=== PATIENT | female | born 1985 | race Caucasian/White ===

== ENCOUNTER 2019-10-11 17:02 | Emergency (ER) | payer OTHER, SELFPAY ==
[2019-10-11 17:18] VITALS: BP 146/71; PULSE 84; RESP 18; TEMP 36.7; O2SAT 96
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
[2019-10-11] MEDS: IBUPROFEN 400 MG TABLET PO (18:38)
[2019-10-11] MEDS: ACETAMINOPHEN 325 MG TABLET 975 MG PO (18:38)
[2019-10-11 19:45] VITALS: BP 106/59; PULSE 80; RESP 14; O2SAT 95
== END 2019-10-11 19:46 | disposition home or self-care (01) ==
PROVIDERS: Emergency Provider Nurse Practitioner Family
DX: S40.022A Contusion of left upper arm, initial encounter (principal); M79.632 Pain in left forearm; S29.9XXA Unspecified injury of thorax, initial encounter; V89.2XXA Person injured in unspecified motor-vehicle accident, traffic, initial encounter
CPT/HCPCS: 71046; 73090; 99283; 99284

== ENCOUNTER 2019-12-12 07:34 | Emergency (ER) | payer OTHER, MEDICAID, SELFPAY ==
[2019-12-12 07:35] VITALS: BP 122/81; PULSE 83; RESP 12; TEMP 36.6; O2SAT 99
--- NOTE | 2019-12-12 07:45 | ED_ITS ---
HPI - Headache General Chief Complaint: Headache Stated Complaint: Migraine x5 days Time Seen by Provider: 12/12/19 07:45 History of Present Illness HPI Narrative: 34-year-old woman with a history of migraines and polysubstance abuse(methamphetamine heroin IV drugs) in recovery now for over a year presents with headache that is been present for over a week. Associated with photophobia and hyperosmia, she describes it is a classic migraine type headache. Further questioning she notes that she has regular headaches more than 15 per month. She has had success with sumatriptan but recognizes that she is probably taking it more than is advised due to the frequency of headaches. She is interested in being on a prophylactic medication and will be establishing care with Dr. Bangura in the next month. Related Data Previous Rx's Medication Instructions Recorded naproxen 500 mg tablet 500 mg PO BID #60 tab 10/20/19 orphenadrine citrate 100 mg 100 mg PO BID PRN #30 tab 10/20/19 tablet,extended release Allergies Allergy/AdvReac Type Severity Reaction Status Date / Time Benzodiazepines AdvReac Severe History of Verified 10/20/19 15:09 addiction hydrocodone AdvReac Severe History of Verified 10/20/19 15:09 addiction; itching Review of Systems Review of Systems Narrative: Nine months with Mirena IUD placed at 3 months and continued spotting for the last number of months Pertinent positive and negative findings as per HPI Remainder of review of systems is otherwise unremarkable for Constitutional: Fevers, chills, weakness ENT: No sore throat, neck pain, ear pain CV: Chest pain, palpitations, dyspnea on exertion Respiratory: Cough, wheeze, dyspnea GI: diarrhea, change in bowel habits, black or bloody stools : Dysuria, hematuria, flank pain MS: Muscle weakness, numbness, joint swelling or warmth Skin: Rashes, nonhealing lesions Neuro: Syncope, dizziness, tingling Endocrine: Fatigue, heat or cold intolerance, very dry skin Heme: Easy bruising or bleeding Allergy: Seasonal rhinorrhea, itchy eyes Patient History Medical History Anxiety (Acute) Depression (Acute) Drug abuse and dependence (Acute) Migraine headache (Acute) Social History Smoking Status: Never smoker Smoking Status: Never smoker Substance Use Type: does not use Exam Narrative Exam Narrative: General: Mild distress with photophobia Able to give a complete and coherent history. Well-nourished well-developed HEENT: Moist mucous membranes, normal sclera with reactive pupils, Neck: supple Respiratory: Lungs are clear to auscultation, no wheezing no rales no rhonchi. Full and symmetrical air movement Cardiac: Regular rate and rhythm no murmurs no bruits Abdomen: Soft nontender good bowel tones, no flank pain Skin: Warm and dry, no rashes Neurologic: Grossly neurologically intact with no obvious asymmetries or abnormalities Extremities: No trauma, well perfused Psych: Cooperative, appropriate insight and affect Initial Vital Signs Initial Vital Signs: Vital Signs Temperature 97.9 F 12/12/19 07:35 Pulse Rate 83 12/12/19 07:35 Respiratory Rate 12 12/12/19 07:35 Blood Pressure 122/81 12/12/19 07:35 Pulse Oximetry 99 12/12/19 07:35 Course Orders Ordered: ED Orders 12/12/19 08:00 Complete Blood Count AUTO DIFF Stat Comprehensive Metabolic Panel Stat 12/12/19 08:12 Urinalysis and Microscopic Stat Discontinued Medications Dexamethasone (Decadron) 10 mg IV NOW ONE Stop: 12/12/19 08:03 Last Admin: 12/12/19 08:11 Dose: 10 mg Documented by: MAXIM Diphenhydramine HCl (Benadryl) 25 mg IV NOW ONE Stop: 12/12/19 08:03 Last Admin: 12/12/19 08:11 Dose: 25 mg Documented by: MAXIM Sodium Chloride (Normal Saline 0.9%) 1,000 mls @ 1,000 mls/hr IV BOLUS ONE Stop: 12/12/19 09:01 Last Infusion: 12/12/19 09:38 Dose: 0 mls/hr Documented by: Admin: 12/12/19 08:13 Dose: 1,000 mls/hr Documented by: MAXIM Ketorolac Tromethamine (Toradol) 15 mg IV NOW ONE Stop: 12/12/19 08:03 Last Admin: 12/12/19 08:12 Dose: 15 mg Documented by: MAXIM Metoclopramide HCl (Reglan) 10 mg IV NOW ONE Stop: 12/12/19 08:03 Last Admin: 12/12/19 08:12 Dose: 10 mg Documented by: MAXIM Vital Signs Vital signs: Vital Signs - 8 hr 12/12/19 07:35 12/12/19 09:26 Temperature 97.9 F Pulse Rate 83 73 Respiratory Rate 12 18 Blood Pressure 122/81 Blood Pressure [Right Arm] 103/64 Pulse Oximetry 99 98 MDM - Headache Medical Records Attestation: I reviewed the patient's medical records. Lab Data Attestation: I reviewed the patient's lab results. Result diagrams: 12/12/19 08:00 12/12/19 08:00 Labs: Lab Results 12/12/19 12/12/19 Range/Units 08:00 08:00 WBC 5.9 (4.5-11.0) X10^3/uL RBC 4.34 (4.0-5.2) X10^6/uL Hgb 14.4 (12.0-16.0) g/dL Hct 41.1 (36-46) % MCV 94.6 (80-100) fL MCH 33.2 (26-34) PG MCHC 35.1 (30-36) % RDW 13.0 (11.6-14.8) % Plt Count 218 (150-400) X10^3/uL Neut % (Auto) 62.9 (50-75) % Lymph % (Auto) 29.9 (25-40) % Prentiss % (Auto) 5.5 (3-14) % Eos % (Auto) 1.1 L (2-4) % Baso % (Auto) 0.6 (0-2) % Neut # (Auto) 3700 (5743-0586) /uL Lymph # (Auto) 1800 (3060-9674) /uL Prentiss # (Auto) 300 (0-900) /uL Eos # (Auto) 100 (0-450) /uL Baso # (Auto) 0 (0-100) /uL Sodium 138 (137-145) mmol/L Potassium 4.1 (3.4-5.1) mmol/L Chloride 107 (98-107) mmol/L Carbon Dioxide 23 (22-32) mmol/L BUN 20 H (7-17) mg/dL Creatinine 0.79 (0.52-1.04) mg/dL Estimated GFR > 60.0 (>60) mL/min BUN/Creatinine Ratio 25.3 H (6-22) Glucose 126 H (70-100) mg/dL Calcium 9.5 (8.4-10.2) mg/dL Total Bilirubin 0.6 (0.2-1.3) mg/dL AST 23 (14-36) IU/L ALT 19 (<35) IU/L Alkaline Phosphatase 56 (38-126) U/L Total Protein 7.8 (6.3-8.2) g/dL Albumin 4.5 (3.5-5.0) g/dL Globulin 3.3 (1.7-4.1) g/dL Albumin/Globulin Ratio 1.4 (1.0-2.8) Point of Care Testing Test Results Negative Urine Dip Bedside Urine Glucose Negative Bedside Urine Bilirubin - Negative Bedside Urine Ketone - Negative Urine Specific [place] 1.010 Bedside Urine Occult Blood - Negative Bedside Urine pH 6.5 Bedside Urine Protein - Negative Bedside Urine Urobilinogen - Negative Bedside Urine Nitrite - Negative Bedside Urine Leukocytes - Negative Esterase MDM Narrative Medical decision making narrative: Headache is entirely resolved and patient is ready for home discharge. Discharge Plan Departure Patient Disposition: Home Clinical Impression: Vaginal spotting Migraine Qualifiers: Migraine type: unspecified Status migrainosus presence: without status migrainosus Intractability: not intractable Qualified Code(s): G43.909 - Migraine, unspecified, not intractable, without status migrainosus Instructions: DI for Migraine Activity Restrictions/Additional Instructions: Thank you for coming in today I am glad that your headache is a bit better. When you have your establish care appointment with Dr. Bangura next month please discuss your chronic migraines and see if he has suggestions on a daily prophylactic type medications, there are number that can be helpful. Please try to minimize [id number] medications to treat her headaches as this can cause rebound headaches. I would also encourage you to be very aware of activities, sleep patterns as well as diet changes that may be triggering your headaches. Some of the classic so our sleep changes, sugar, and caffeine. Regarding vaginal spotting your having, this can be common with a Mirena IUD in place. There are some simple hormonal supplements that may be useful. Again, please discuss this with Dr. Bangura. I wish you the best Medicines that you got in the emergency room today include saline, Toradol, Decadron, Benadryl, and Reglan. None of these are narcotic, benzodiazepines or stimulants. None should show up on your drug testing. Please make sure you do include all of these medications when you let them know what medication you have had. Prescriptions: No Action naproxen 500 mg tablet 500 mg PO BID Qty: 60 RF: 1 orphenadrine citrate 100 mg tablet extended release 100 mg PO BID PRN (Reason: muscle spasm) Qty: 30 RF: 0
[2019-12-12] MEDS: diphenhydrAMINE 50 MG/ML VIAL 25 MG IV (08:11)
[2019-12-12] MEDS: DEXAMETHASONE 10 MG/ML VIAL IV (08:11)
[2019-12-12] MEDS: METOCLOPRAMIDE 10 MG/2 ML INJ IV (08:12)
[2019-12-12] MEDS: KETOROLAC 60 MG/2 ML VIAL 15 MG IV (08:12)
[2019-12-12 08:13] LABS: Add Manual Diff / Slide Review NO; Basophils Absolute Auto 0 /uL (0-100); Basophils Percent Auto 0.6 % (0-2); Eosinophils Absolute Auto 100 /uL (0-450); Eosinophils Percent Auto 1.1 % (2-4); Hematocrit 41.1 % (36-46); Hemoglobin 14.4 g/dL (12.0-16.0); Lymphocytes Absolute Auto 1800 /uL (1100-4500); Lymphocytes Percent Auto 29.9 % (25-40); Mean Corpuscular HGB Conc 35.1 % (30-36); Mean Corpuscular Hemoglobin 33.2 PG (26-34); Mean Corpuscular Volume 94.6 fL (80-100); Monocytes Absolute Auto 300 /uL (0-900); Monocytes Percent Auto 5.5 % (3-14); Neutrophils Absolute Auto 3700 /uL (1500-7000); Neutrophils Percent Auto 62.9 % (50-75); Platelet Count 218 X10^3/uL (150-400); Red Blood Cell Count 4.34 X10^6/uL (4.0-5.2); White Blood Cell Count 5.9 X10^3/uL (4.5-11.0)
[2019-12-12] MEDS: SODIUM CHLORIDE 0.9% 1,000 ML 1000 ML IV (08:13)
[2019-12-12 08:25] LABS: Alanine Aminotransferase 19 IU/L (<35); Albumin 4.5 g/dL (3.5-5.0); Albumin Globulin Ratio 1.4 (1.0-2.8); Alkaline Phosphatase 56 U/L (38-126); Aspartate Aminotransferase 23 IU/L (14-36); BUN Creatinine Ratio 25.3 (6-22); Bilirubin Total 0.6 mg/dL (0.2-1.3); Blood Urea Nitrogen 20 mg/dL (7-17); Calcium 9.5 mg/dL (8.4-10.2); Carbon Dioxide 23 mmol/L (22-32); Chloride 107 mmol/L (98-107); Estimated Glomerular Filt Rate > 60.0 mL/min (>60); Globulin 3.3 g/dL (1.7-4.1); Glucose 126 mg/dL (70-100); HEMOLYSIS 18 (0-50); Potassium 4.1 mmol/L (3.4-5.1); Sodium 138 mmol/L (137-145); Total Protein 7.8 g/dL (6.3-8.2)
[2019-12-12 09:26] VITALS: BP 103/64; PULSE 73; RESP 18; O2SAT 98
[2019-12-12 10:57] LABS: Bacteria Urine None Seen; RBC Urine None Seen (0-5/HPF); WBC Urine None Seen (0-5/HPF)
[2019-12-12 10:58] LABS: Appearance Urine UA CLEAR; Bilirubin Urine UA NEGATIVE (NEGATIVE); Color Urine UA YELLOW; Glucose Urine UA NEGATIVE (Negative); Ketones Urine UA NEGATIVE (NEGATIVE); Leukocyte Esterase Urine UA NEGATIVE (NEGATIVE); Nitrite Urine UA NEGATIVE (Negative); Occult Blood Urine UA NEGATIVE (Negative); Protein Urine UA NEGATIVE (Negative); Specific Gravity Urine UA <=1.005 (1.000-1.035); Urobilinogen Urine UA 0.2 E.U./dL (0.2)
[2019-12-12 11:02] LABS: pH Urine UA 6.5 (4.5-8.0)
[2019-12-12 11:04] LABS: Culture Indicated Urine Cult Not Indicated; Urine Comments Microscopic Normal
== END 2019-12-12 09:54 | disposition home or self-care (01) ==
PROVIDERS: Emergency Provider Emergency Medicine
DX: G43.909 Migraine, unspecified, not intractable, without status migrainosus (principal); N93.9 Abnormal uterine and vaginal bleeding, unspecified
CPT/HCPCS: 36415; 80053; 81001; 81003; 81025; 85025; 96361; 96374; 96375; 99284; J1100; J1200; J1885; J2765

== ENCOUNTER 2019-12-15 18:02 | Emergency (ER) | payer OTHER, MEDICAID, SELFPAY ==
[2019-12-15 18:22] VITALS: BP 130/70; PULSE 72; RESP 18; TEMP 36.8; O2SAT 100; BMI 34.7
--- NOTE | 2019-12-15 19:16 | ED.EAR ---
HPI - Ear Problem <JOSE Washington- - Last Filed: 12/15/19 19:23> General Chief complaint: Ear Stated complaint: LEFT EAR NUMBNESS DISCHARGED Time Seen by Provider: 12/15/19 18:50 Source: patient Mode of arrival: Ambulatory Limitations: no limitations History of Present Illness HPI Narrative: The patient is a 34-year-old female current smoker with history of migraines who presents for chief complaint of purulence drainage from her left ear. She states this started yesterday. She denies any fevers or congestion. She states it started after she was scratching the inside of right ear while picking up rocks and dirt. She is concerned that she might have introduced some infection into her ear that way. She denies any cough or shortness of breath. She states that she only has purulence drainage from her left ear. She states her hearing is normal for her. Related Data Previous Rx's Medication Instructions Recorded naproxen 500 mg tablet 500 mg PO BID #60 tab 10/20/19 orphenadrine citrate 100 mg 100 mg PO BID PRN #30 tab 10/20/19 tablet,extended release ofloxacin 10 drop EAR-LEFT DAILY 7 Days #10 12/15/19 ml Allergies Allergy/AdvReac Type Severity Reaction Status Date / Time Benzodiazepines AdvReac Severe History of Verified 12/15/19 18:22 addiction hydrocodone AdvReac Severe History of Verified 12/15/19 18:22 addiction; itching Review of Systems <JOSE Washington- - Last Filed: 12/15/19 19:23> Review of Systems Narrative: GENERAL: Denies chills, fatigue, malaise, fever, sweats. HEENT: See HPI RESPIRATORY: Denies dyspnea, cough, wheezing, hemoptysis, sputum. CARDIOVASCULAR: Denies chest pain, palpitations, orthopnea, edema, GASTROINTESTINAL: Denies nausea, vomiting, abdominal pain, diarrhea, constipation, melena. : Denies dysuria, frequency, incontinence, hematuria, urinary retention. MUSCULOSKELETAL: denies weakness, joint pain, or bony pain SKIN: Denies rash, skin lesions, or other NEUROLOGIC: Denies weakness, headache, numbness, change in speech, confusion, seizures, incoordination. PSYCHIATRIC: No concerning psychosocial issues. 12 point review of systems is negative except for those stated above Patient History <CHICO Washington - Last Filed: 12/15/19 19:23> Medical History Anxiety (Acute) Depression (Acute) Drug abuse and dependence (Acute) Migraine headache (Acute) Social History Smoking Status: Current every day smoker Smoking Status: Current every day smoker alcohol intake frequency: other Substance Use Type: does not use and former substance user Exam <CHICO Washington - Last Filed: 12/15/19 19:23> Narrative Exam Narrative: GENERAL: This is a well-nourished, well-developed patient, in no acute distress HEAD: Atraumatic. Normocephalic. No temporal or scalp tenderness. EYES: Pupils equal round and reactive. Extraocular motions intact. No scleral icterus. No injection or drainage. ENT: Nose without bleeding, purulent drainage or septal hematoma. Throat without erythema, tonsillar hypertrophy or exudate. Uvula midline. Airway patent. Bilateral TMs pearly keith. Left ear canal erythematous and swollen. Right ear canal within normal limits NECK: Trachea midline. No JVD or lymphadenopathy. Supple, nontender, no meningeal signs. CARDIOVASCULAR: Regular rate and rhythm RESPIRATORY: Clear to auscultation. Breath sounds equal bilaterally. No wheezes, rales, or rhonchi. No cough. No increased respiratory effort. No accessory muscle use GASTROINTESTINAL: Abdomen soft, non-tender, nondistended. No hepato-splenomegaly, or palpable masses. No guarding. EXTREMITIES: No clubbing, cyanosis, or edema. No joint tenderness, effusion, or edema noted. BACK: Nontender without deformity or crepitance. No flank tenderness. NEURO: AOx3. SKIN: No rash or erythema. Initial Vital Signs Initial Vital Signs: Vital Signs Temperature 98.2 F 12/15/19 18:22 Pulse Rate 72 12/15/19 18:22 Respiratory Rate 18 12/15/19 18:22 Blood Pressure 130/70 12/15/19 18:22 Pulse Oximetry 100 12/15/19 18:22 <Carl Barba DO - Last Filed: 12/15/19 20:05> Initial Vital Signs Initial Vital Signs: Vital Signs Temperature 98.2 F 12/15/19 18:22 Pulse Rate 72 12/15/19 18:22 Respiratory Rate 18 12/15/19 18:22 Blood Pressure 130/70 12/15/19 18:22 Pulse Oximetry 100 12/15/19 18:22 Course <CHICO Washington - Last Filed: 12/15/19 19:23> Vital Signs Vital signs: Vital Signs - 8 hr 12/15/19 18:22 12/15/19 19:35 Temperature 98.2 F Pulse Rate 72 78 Respiratory Rate 18 16 Blood Pressure 130/70 121/61 Pulse Oximetry 100 98 <Carl Barba DO - Last Filed: 12/15/19 20:05> Vital Signs Vital signs: Vital Signs - 8 hr 12/15/19 18:22 12/15/19 19:35 Temperature 98.2 F Pulse Rate 72 78 Respiratory Rate 18 16 Blood Pressure 130/70 121/61 Pulse Oximetry 100 98 Medical Decision Making <CHICO Washington - Last Filed: 12/15/19 19:23> MDM Narrative Medical decision making narrative: The patient is a 34 year female who presents with a chief complaint of drainage from her ear. Exam indicates otitis externa. Will treat with ofloxacin. Discussed at length not introducing foreign objects into her ear canals. Encourage PCP follow-up. Discussed [id number] medications as needed and able. Patient has no questions or concerns upon discharge and states understanding of return precautions as well as follow-up care. Discharge Plan Departure Patient Disposition: Home Clinical Impression: Otitis externa Qualifiers: Otitis externa type: unspecified type Chronicity: acute Laterality: left Qualified Code(s): H60.502 - Unspecified acute noninfective otitis externa, left ear Discharge Date/Time: 12/15/19 19:36 Instructions: How to Instill Ear Drops, DI for Otitis Externa Activity Restrictions/Additional Instructions: Thank you for trusting us with your care today. I sent a prescription of ofloxacin ear drops to [facility] Please follow-up with primary care provider. Please use [id number] medications as needed and able for pain. Please back to the emergency department for any acute concerns. Please do not put anything in your ears. Prescriptions: New ofloxacin 0.3 % drops 10 drop EAR-LEFT DAILY 7 Days Qty: 10 RF: 0 No Action naproxen 500 mg tablet 500 mg PO BID Qty: 60 RF: 1 orphenadrine citrate 100 mg tablet extended release 100 mg PO BID PRN (Reason: muscle spasm) Qty: 30 RF: 0 Referrals: Danilo Arcos MD [Physician] - <Carl Barba, - Last Filed: 12/15/19 20:05> [facility] Dr Barba Co-Sign Statement: I was available for consultation during this patient's emergency department visit. This chart is signed by myself for administrative purposes only. I did not have direct contact with this patient during this visit. They were seen independently by the APC.
[2019-12-15 19:35] VITALS: BP 121/61; PULSE 78; RESP 16; O2SAT 98
== END 2019-12-15 19:36 | disposition home or self-care (01) ==
PROVIDERS: Emergency Provider Nurse Practitioner Family
DX: H60.502 Unspecified acute noninfective otitis externa, left ear (principal)
CPT/HCPCS: 99281

== ENCOUNTER 2019-12-20 06:03 | Emergency (ER) | payer OTHER, MEDICAID, SELFPAY ==
--- NOTE | 2019-12-20 06:05 | ED.HA ---
HPI - Headache General Chief Complaint: Headache Stated Complaint: migraine and nauseas Time Seen by Provider: 12/20/19 06:05 Source: patient Mode of arrival: Ambulatory Limitations: no limitations History of Present Illness HPI Narrative: 34-year-old female daily smoker with history of migraines and polysubstance abuse presents with a recurrence of headache. She frequently has headaches, sometimes as many as 15 per month. She has been here multiple times recently including 1 week ago for a migraine and a few days ago for some drainage from her ear. She experience complete resolution of symptoms after basic headache cocktail. She states this is rather typical of her migraines that started last evening. It is generalized in location and seems to be made worse by bright lights, loud noises and exertion. Improves with rest and sitting in a dark room. She is nauseated but denies any vomiting. She denies any trauma or head injury. She has had no fever, chills or neck pain Related Data Previous Rx's Medication Instructions Recorded naproxen 500 mg tablet 500 mg PO BID #60 tab 10/20/19 orphenadrine citrate 100 mg 100 mg PO BID PRN #30 tab 10/20/19 tablet,extended release ofloxacin 10 drop EAR-LEFT DAILY 7 Days #10 12/15/19 ml ondansetron 4 mg PO Q6H PRN #10 tab 12/20/19 sumatriptan succinate See Rx Instructions .ROUTE 12/20/19 .COMPLEX #10 tab Allergies Allergy/AdvReac Type Severity Reaction Status Date / Time Benzodiazepines AdvReac Severe History of Verified 12/15/19 18:22 addiction hydrocodone AdvReac Severe History of Verified 12/15/19 18:22 addiction; itching Review of Systems Constitutional Constitutional: Denies chills, Denies fatigue, Denies fever(s), Denies frequent falls, Reports headache(s), Denies lethargy and Denies weakness Eyes Eyes: Denies change in vision, Denies eye discharge, Denies irritation and Denies loss of vision ENT Ears, Nose, Mouth, and Throat: Denies change in voice, Denies dizziness, Reports headache(s), Denies neck pain, Denies sore throat and Denies throat swelling Cardiovascular Cardiovascular: Denies chest pain, Denies irregular heart rhythm, Denies lightheadedness, Denies palpitations, Denies dyspnea, Denies dyspnea on exertion and Denies orthopnea Respiratory Respiratory: Denies cough, Denies dyspnea, Denies dyspnea on exertion and Denies wheezing Gastrointestinal Gastrointestinal: Denies abdominal pain, Denies change in bowel habits, Denies diarrhea, Denies nausea and Denies vomiting Genitourinary Genitourinary: Denies hematuria, Denies flank pain, Denies urinary incontinence and Denies urinary urgency Musculoskeletal Musculoskeletal: Denies back pain, Denies muscle weakness, Denies neck pain, Denies numbness and Denies tingling Integumentary/Breasts Skin/Breast: Denies pruritus, Denies erythema, Denies rash and Denies wounds Neurologic Neurologic: Denies behavioral changes, Denies confusion, Denies dizziness, Denies frequent falls, Reports headache(s), Denies loss of vision, Denies numbness, Denies tingling and Denies weakness Psychiatric Psychiatric: Denies anxiety, Denies behavioral changes, Denies confusion, Denies depression, Denies homicidal ideation and Denies suicidal ideation Endocrine Endocrine: Denies fatigue, Denies flushing and Denies palpitations Hematologic/Lymphatic Hematologic/Lymphatic: Denies easy bruising Allergic/Immunologic Allergic/Immunologic: Denies urticaria, Denies throat swelling and Denies wheezing Patient History Medical History Anxiety (Acute) Depression (Acute) Drug abuse and dependence (Acute) Migraine headache (Acute) Social History Smoking Status: Current every day smoker Smoking Status: Current every day smoker alcohol intake frequency: other Substance Use Type: does not use and former substance user Exam Narrative Exam Narrative: GENERAL: [34] year old patient appears stated age. Well-nourished, well-developed patient, in mild distress. HEAD: Atraumatic. Normocephalic. EYES: Pupils equal round and reactive. Extraocular motions intact. No scleral icterus. No injection or drainage. ENT: Nose without bleeding, purulent drainage. Throat without erythema, tonsillar hypertrophy or exudate. Airway patent. NECK: Trachea midline. Non tender CARDIOVASCULAR: Regular rate and rhythm without murmurs, gallops, or rubs. RESPIRATORY: Clear to auscultation. Breath sounds equal bilaterally. No wheezes, rales, or rhonchi. GASTROINTESTINAL: Abdomen soft, non-tender, nondistended. EXTREMITIES: No edema or joint tenderness. BACK: Nontender without deformity or crepitance. No flank tenderness. NEURO: AOx3. SKIN: No rash or erythema of visible areas NIH Stroke Scale 1a. LOC: Patient is alert and keenly responsive (0) 1b. LOC Questions: Patient answers both LOC questions accurately (0) 1c. LOC Commands: Patient performs both tasks correctly (0) 2. Best Gaze: Normal (0) 3. Visual: No visual loss (0) 4. Facial palsy: Normal symmetrical movements (0) 5. Motor arm: No drift (0) 6. Motor leg: No drift (0) 7. Limb ataxia: Absent (0) 8. Sensory: Normal (0) 9. Best language: No aphasia; normal (0) 10. Dysarthria: Normal (0) 11. Extinction and inattention: No abnormality (0) NIHSS: 0 Initial Vital Signs Initial Vital Signs: Vital Signs Temperature 98.0 F 12/20/19 06:10 Pulse Rate 81 12/20/19 06:10 Respiratory Rate 15 12/20/19 06:10 Blood Pressure 137/71 12/20/19 06:10 Pulse Oximetry 95 12/20/19 06:10 Course Course Course Narrative: patient feeling better after above stated therapies Orders Ordered: Discontinued Medications Ketorolac Tromethamine (Toradol) 60 mg IM NOW ONE Stop: 12/20/19 06:16 Last Admin: 12/20/19 06:22 Dose: 60 mg Documented by: BLANK Metoclopramide HCl (Reglan) 10 mg IM NOW ONE Stop: 12/20/19 06:16 Last Admin: 12/20/19 06:22 Dose: 10 mg Documented by: BLANK Vital Signs Vital signs: Vital Signs - 8 hr 12/20/19 06:10 Temperature 98.0 F Pulse Rate 81 Respiratory Rate 15 Blood Pressure 137/71 Pulse Oximetry 95 Discharge Plan Departure Patient Disposition: Home Clinical Impression: Migraine Qualifiers: Migraine type: unspecified Status migrainosus presence: without status migrainosus Intractability: not intractable Qualified Code(s): G43.909 - Migraine, unspecified, not intractable, without status migrainosus Instructions: DI for Migraine Activity Restrictions/Additional Instructions: *You have been diagnosed with [acute migraine headache] *What to do: *Take medications as directed: Prescription sent to [facility] in [place] *Follow up with your primary care provider in 2-3 days, call for an appointment. Let them know you were seen in the Emergency Department and that we ask that you be seen in follow up *Return to ER if you should have any new, worsening or concerning symptoms, Prescriptions: New sumatriptan succinate 25 mg tablet See Rx Instructions .ROUTE .COMPLEX Qty: 10 RF: 0 ondansetron 4 mg tablet,disintegrating 4 mg PO Q6H PRN (Reason: nausea and vomiting) Qty: 10 RF: 0 No Action naproxen 500 mg tablet 500 mg PO BID Qty: 60 RF: 1 orphenadrine citrate 100 mg tablet extended release 100 mg PO BID PRN (Reason: muscle spasm) Qty: 30 RF: 0 ofloxacin 0.3 % drops 10 drop EAR-LEFT DAILY 7 Days Qty: 10 RF: 0 Referrals: [facility] [Outside]
[2019-12-20 06:10] VITALS: BP 137/71; PULSE 81; RESP 15; TEMP 36.7; O2SAT 95; BMI 34.7
[2019-12-20] MEDS: METOCLOPRAMIDE 10 MG/2 ML INJ IM (06:22)
[2019-12-20] MEDS: KETOROLAC 60 MG/2 ML VIAL IM (06:22)
[2019-12-20 06:54] VITALS: BP 126/66; PULSE 79; RESP 18; O2SAT 99
== END 2019-12-20 06:55 | disposition home or self-care (01) ==
PROVIDERS: Emergency Provider Emergency Medicine
DX: G43.909 Migraine, unspecified, not intractable, without status migrainosus (principal); F19.11 Other psychoactive substance abuse, in remission
CPT/HCPCS: 96372; 99283; J1885; J2765

== ENCOUNTER 2020-01-03 13:16 | Emergency (ER) | payer OTHER, MEDICAID, SELFPAY ==
[2020-01-03 13:20] VITALS: BP 109/62; PULSE 70; RESP 13; TEMP 36.9; O2SAT 99; BMI 34.4
--- NOTE | 2020-01-03 13:33 | ED.HA ---
HPI - Headache General Chief Complaint: Headache Stated Complaint: Migraine Time Seen by Provider: 01/03/20 13:27 Source: patient Mode of arrival: Ambulatory Limitations: no limitations History of Present Illness HPI Narrative: 34-year-old female. History of migraines. Here for evaluation of a headache. She states that her current headache started last evening. She took some Tylenol without any improvement. She has been on Imitrex in the past but does not have any currently. States that his right side. Is sharp. In character feels just like prior headaches. No fevers. No neck pain. No trauma. Related Data Previous Rx's Medication Instructions Recorded naproxen 500 mg tablet 500 mg PO BID #60 tab 10/20/19 orphenadrine citrate 100 mg 100 mg PO BID PRN #30 tab 10/20/19 tablet,extended release ondansetron 4 mg PO Q6H PRN #10 tab 12/20/19 sumatriptan succinate See Rx Instructions .ROUTE 12/20/19 .COMPLEX #10 tab nicotine 1 patch TRANSDERMAL DAILY #30 patch 12/21/19 21mg/24hr-14mg/24hr-7mg/24hr daily transderm patch,sequential cyclobenzaprine 10 mg tablet 10 mg PO TID PRN #21 tab 12/29/19 Allergies Allergy/AdvReac Type Severity Reaction Status Date / Time Benzodiazepines AdvReac Severe History of Verified 01/03/20 13:25 addiction hydrocodone AdvReac Severe History of Verified 01/03/20 13:25 addiction; itching Review of Systems Constitutional Constitutional: Denies fatigue, Denies fever(s) and Denies headache(s) Eyes Eyes: Denies change in vision ENT Ears, Nose, Mouth, and Throat: Denies headache(s), Denies neck mass and Denies sore throat Cardiovascular Cardiovascular: Denies chest pain and Denies dyspnea Respiratory Respiratory: Denies dyspnea Gastrointestinal Gastrointestinal: Denies vomiting Musculoskeletal Musculoskeletal: Denies myalgias and Denies arthralgias Integumentary/Breasts Skin/Breast: Denies lesions and Denies rash Neurologic Neurologic: Denies behavioral changes and Denies headache(s) Psychiatric Psychiatric: Denies behavioral changes Endocrine Endocrine: Denies fatigue Hematologic/Lymphatic Hematologic/Lymphatic: Denies easy bleeding and Denies easy bruising Patient History Medical History Anxiety (Acute) Depression (Acute) Drug abuse and dependence (Acute) Migraine headache (Acute) Social History Smoking Status: Current every day smoker Smoking Status: Current every day smoker alcohol intake frequency: other Substance Use Type: does not use and former substance user Exam Initial Vital Signs Initial Vital Signs: Vital Signs Temperature 98.5 F 01/03/20 13:20 Pulse Rate 70 01/03/20 13:20 Respiratory Rate 13 01/03/20 13:20 Blood Pressure 109/62 01/03/20 13:20 Pulse Oximetry 99 01/03/20 13:20 Const General: cooperative, comfortable and well developed Limitations: mental status not altered HENMT Head: normal to inspection and normocephalic Resp Effort & Inspection: normal respiratory effort Cardio Rate: regular rate Skin Lesions: no lesions Rashes: no rashes Neuro General: alert, awake and oriented x3 Cognition: normal cognition Speech: speech normal Motor: muscle tone normal throughout Sensory Exam: no sensory deficits noted Extrem General: normal to inspection and capillary refill normal Course Orders Ordered: Discontinued Medications Ketorolac Tromethamine (Toradol) 30 mg IM NOW ONE Stop: 01/03/20 13:34 Last Admin: 01/03/20 14:00 Dose: 30 mg Documented by: PENG Sumatriptan Succinate (Imitrex) 6 mg SUBCUT NOW ONE Stop: 01/03/20 13:34 Last Admin: 01/03/20 14:01 Dose: 6 mg Documented by: PENG Vital Signs Vital signs: Vital Signs - 8 hr 01/03/20 13:20 Temperature 98.5 F Pulse Rate 70 Respiratory Rate 13 Blood Pressure 109/62 Pulse Oximetry 99 MDM - Headache MDM Narrative Medical decision making narrative: Patient reports complete resolution of her symptoms after the Toradol and the Imitrex. She has another prescription for Imitrex at home. She is going to contact her primary doctor about potentially switching to another medication. Low suspicion for CVA or TIA. Feel we could hold on radiologic studies. Patient was given return precautions and follow-up instructions. She expressed understanding and agreement. Discharge Plan Departure Patient Disposition: Home Clinical Impression: Migraine Qualifiers: Migraine type: unspecified Status migrainosus presence: without status migrainosus Intractability: not intractable Qualified Code(s): G43.909 - Migraine, unspecified, not intractable, without status migrainosus Instructions: DI for Migraine Activity Restrictions/Additional Instructions: Recommend you continue to take all of your medications as directed. Contact your primary provider for follow-up. Return to the emergency department for any new or worsening symptoms Prescriptions: No Action nicotine 21-14-7 mg/24 hr patch, TD daily, sequential 1 patch transdermal DAILY Qty: 30 RF: 1 cyclobenzaprine 10 mg tablet 10 mg PO TID PRN (Reason: muscle spasm) Qty: 21 RF: 0 naproxen 500 mg tablet 500 mg PO BID Qty: 60 RF: 1 orphenadrine citrate 100 mg tablet extended release 100 mg PO BID PRN (Reason: muscle spasm) Qty: 30 RF: 0 sumatriptan succinate 25 mg tablet See Rx Instructions .ROUTE .COMPLEX Qty: 10 RF: 0 ondansetron 4 mg tablet,disintegrating 4 mg PO Q6H PRN (Reason: nausea and vomiting) Qty: 10 RF: 0
[2020-01-03] MEDS: KETOROLAC 60 MG/2 ML VIAL 30 MG IM (14:00)
[2020-01-03] MEDS: SUMAtriptan 6 MG/0.5 ML VIAL SUBCUT (14:01)
[2020-01-03 14:56] VITALS: BP 116/73; PULSE 65; RESP 14; O2SAT 100
== END 2020-01-03 15:01 | disposition home or self-care (01) ==
PROVIDERS: Emergency Provider Emergency Medicine
DX: G43.909 Migraine, unspecified, not intractable, without status migrainosus (principal)
CPT/HCPCS: 96372; 99283; J1885; J3030

== ENCOUNTER 2020-01-25 03:07 | Emergency (ER) | payer OTHER, MEDICAID, SELFPAY ==
--- NOTE | 2020-01-25 03:13 | ED_ITS ---
HPI - Headache General Chief Complaint: Headache Stated Complaint: migraine Time Seen by Provider: 01/25/20 03:12 History of Present Illness HPI Narrative: 34-year-old woman a history of migraine headaches, polysubstance abuse in remission, presents with recurrent migraine. She has had 3 ER visits for migraine headaches in the last month and used a full month's worth of Imitrex as well. She has headaches almost daily. She states that she does have a follow-up appointment with her primary care provider on January 28 to discuss her headaches. In the past she has been on propranolol for both migraine suppression and mental health. She continues to take 20 mg of propranolol as prescribed by her psychiatric care provider. She states that her current headache has been present for approximately 24 hours. It has been nonresponsive to Tylenol, the only medication she has tried to alleviate symptoms. She notes that she has had little to eat in the last 24 hours because of the nausea associated with the headache, that she was outside in the sun all day long and had little water to consume as well. She describes her current headache as her typical migraine with no complaints of fever, abdominal pain, cough, chest pain or any other neurologic symptoms. Related Data Previous Rx's Medication Instructions Recorded naproxen 500 mg tablet 500 mg PO BID #60 tab 10/20/19 orphenadrine citrate 100 mg 100 mg PO BID PRN #30 tab 10/20/19 tablet,extended release ondansetron 4 mg PO Q6H PRN #10 tab 12/20/19 sumatriptan succinate See Rx Instructions .ROUTE 12/20/19 .COMPLEX #10 tab nicotine 1 patch TRANSDERMAL DAILY #30 patch 12/21/19 21mg/24hr-14mg/24hr-7mg/24hr daily transderm patch,sequential cyclobenzaprine 10 mg tablet 10 mg PO TID PRN #21 tab 12/29/19 Allergies Allergy/AdvReac Type Severity Reaction Status Date / Time Benzodiazepines AdvReac Severe History of Verified 01/03/20 13:25 addiction hydrocodone AdvReac Severe History of Verified 01/03/20 13:25 addiction; itching Review of Systems Review of Systems ROS Unobtainable: All systems reviewed & are unremarkable except as noted in HPI and below Patient History Medical History Anxiety (Acute) Depression (Acute) Drug abuse and dependence (Acute) Migraine headache (Acute) Social History Smoking Status: Current every day smoker Smoking Status: Current every day smoker alcohol intake frequency: other Substance Use Type: does not use and former substance user Exam Narrative Exam Narrative: General: Healthy appearing, in no acute distress. Able to give a complete and coherent history. Well-nourished well-developed HEENT: Moist mucous membranes, normal sclera with reactive pupils, Neck: No JVD, supple Respiratory: Lungs are clear to auscultation, no wheezing no rales no rhonchi. Full and symmetrical air movement Cardiac: Regular rate and rhythm no murmurs no bruits Abdomen: Soft nontender good bowel tones, no flank pain Skin: Warm and dry, no rashes, recent sun exposure over the face chest and arms. Neurologic: Grossly neurologically intact with no obvious asymmetries or abnormalities Extremities: No trauma, well perfused Psych: Cooperative, appropriate insight and affect Initial Vital Signs Initial Vital Signs: Vital Signs Temperature 97.6 F 01/25/20 03:17 Pulse Rate 89 01/25/20 03:17 Respiratory Rate 14 01/25/20 03:17 Blood Pressure 131/77 01/25/20 03:17 Pulse Oximetry 96 01/25/20 03:17 Course Orders Ordered: Discontinued Medications Ketorolac Tromethamine (Toradol) 15 mg IM NOW ONE Stop: 01/25/20 03:21 Last Admin: 01/25/20 03:33 Dose: 15 mg Documented by: KAILASHL Ondansetron HCl (Zofran Odt) 8 mg SL NOW ONE Stop: 01/25/20 03:21 Last Admin: 01/25/20 03:32 Dose: 8 mg Documented by: USHA Sumatriptan Succinate (Imitrex) 6 mg SUBCUT NOW ONE Stop: 01/25/20 03:21 Last Admin: 01/25/20 03:33 Dose: 6 mg Documented by: USHA Vital Signs Vital signs: Vital Signs - 8 hr 01/25/20 03:17 Temperature 97.6 F Pulse Rate 89 Respiratory Rate 14 Blood Pressure 131/77 Pulse Oximetry 96 MDM - Headache MDM Narrative Medical decision making narrative: 34-year-old woman with acute migraine headache with increasing headaches to almost daily. Will use Zofran ODT, IM Toradol and subcu Imitrex and re-evaluate. On initial evaluation there is no suggestion of stroke, TIA, meningitis or acute infectious etiology to explain her current headache 427 am headache is significantly improved. Blood pressure is stable. Patient is safe for home discharge Discharge Plan Departure Patient Disposition: Home Clinical Impression: Migraine Qualifiers: Migraine type: unspecified Status migrainosus presence: without status mi grainosus Intractability: not intractable Qualified Code(s): G43.909 - Migraine, unspecified, not intractable, without status migrainosus Instructions: DI for Migraine Activity Restrictions/Additional Instructions: Thank you for coming in today Your given Zofran, Toradol and Imitrex with successful resolution of her headache. I am a bit concerned that your having such frequent headaches. Please keep your scheduled appointment with Dr. Bangura next week to talk about your headaches and options for medications that may suppress the frequency and treat the more efficiently for you. Please make sure you are drinking plenty of water throughout the day, chronic dehydration can be associated with worsening migraines. I wish you well Prescriptions: No Action nicotine 21-14-7 mg/24 hr patch, TD daily, sequential 1 patch transdermal DAILY Qty: 30 RF: 1 cyclobenzaprine 10 mg tablet 10 mg PO TID PRN (Reason: muscle spasm) Qty: 21 RF: 0 naproxen 500 mg tablet 500 mg PO BID Qty: 60 RF: 1 orphenadrine citrate 100 mg tablet extended release 100 mg PO BID PRN (Reason: muscle spasm) Qty: 30 RF: 0 sumatriptan succinate 25 mg tablet See Rx Instructions .ROUTE .COMPLEX Qty: 10 RF: 0 ondansetron 4 mg tablet,disintegrating 4 mg PO Q6H PRN (Reason: nausea and vomiting) Qty: 10 RF: 0 Referrals: Danilo Arcos MD [Primary Care Provider] -
[2020-01-25 03:17] VITALS: BP 131/77; PULSE 89; RESP 14; TEMP 36.4; O2SAT 96; BMI 34.2
[2020-01-25] MEDS: ONDANSETRON 4 MG ODT 8 MG SL (03:32)
[2020-01-25] MEDS: SUMAtriptan 6 MG/0.5 ML VIAL SUBCUT (03:33)
[2020-01-25] MEDS: KETOROLAC 60 MG/2 ML VIAL 15 MG IM (03:33)
[2020-01-25 04:35] VITALS: BP 131/77; PULSE 89; RESP 16; O2SAT 98
== END 2020-01-25 04:35 | disposition home or self-care (01) ==
PROVIDERS: Emergency Provider Emergency Medicine; PCP Student in an Organized Health Care Education/Training Program
DX: G43.909 Migraine, unspecified, not intractable, without status migrainosus (principal)
CPT/HCPCS: 96372; 99283; J1885; J3030

== ENCOUNTER → 2020-02-08 06:55 | Outpatient (CLI) | payer OTHER, MEDICAID, SELFPAY ==
--- NOTE | 2020-02-08 07:09 | DI.ECHO.S_ITS ---
Echocardiogram Report + + :Name: DINA CRAWFORD Study Date: 02/08/2020 Height: 61 in : :[facility] Exam Location: [facility] Weight: 177 lb : : Gender: Female BSA: 1.8 m2 : :: 1985 Age: 34 yrs BP: 105/80 mmHg: :Reason For Study: Murmur/ History of IVDU : : Performed By: Agata Page : + + Interpretation Summary 1) Normal left ventricular thickness, size, wall motion, and systolic function (EF 55-60%). 2) Normal right ventricular and function. 3) No obvious valvular vegetation present. If there is a clinical concern for endocarditis, consider NATHANAEL if it would change management specialist. 4) No valvular stenosis or regurgitation present. 5) No prior echo available for comparison. Procedure: A two-dimensional transthoracic echocardiogram with color flow and Doppler was performed. The study quality was technically adequate. There is no prior echocardiogram noted for this patient. The patient was in normal sinus rhythm during the exam. Left Ventricle: The left ventricle is normal in size, wall thickness, and systolic function without any focal wall motion abnormalities. The ejection fraction is estimated to be 55-60%. Diastolic parameters suggest probable normal left ventricular diastolic function and normal filling pressures. Right Ventricle: The right ventricle is normal in size and function. Atria: The left atrial size is normal. The right atrium is borderline dilated. There is no Doppler evidence for an interatrial shunt. Mitral Valve: The mitral valve leaflets appear mildly thickened, but open well. There is no obvious vegetation seen on the mitral valve. There is trace mitral regurgitation. Aortic Valve: The aortic valve is trileaflet. The aortic valve is slightly calcified. There is no obvious aortic valvular vegetation. There is no aortic valve stenosis. There is trace aortic regurgitation. Tricuspid Valve: The tricuspid valve is normal in structure and function. There is no obvious tricuspid valve vegetation. There is trace tricuspid regurgitation. The right ventricular systolic pressure is estimated to be at least 19 mmHg based on an estimated right atrial pressure of 3 mm Hg. Pulmonic Valve: Echogenicity noted on the pulmonic valve, can not exclude valvular vegetation. There is a trace or physiologic amount of pulmonic regurgitation. Great Vessels: The aortic root is normal size. The ascending aorta is normal in size. The aortic arch is normal in size. The pulmonary artery is normal size. The IVC is of normal diameter and collapses greater than 50% with a sniff. This suggests a low right atrial pressure of 3 mm Hg. Pericardium/ Pleura There is no pericardial effusion. There is no pleural effusion. MMode/2D Measurements & Calculations LVIDd: 4.6 cm Ao root diam: 2.8 cm LVIDs: 2.9 cm asc Aorta Diam: 2.4 cm FS: 36.3 % Ao Arch Diam (Prox Trans): 2.2 cm EPSS: 0.25 cm IVSd: 0.67 cm LVPWd: 0.78 cm LV danielson. diameter/BSA (cm/m^2): 2.5 LV sys. diameter/BSA (cm/m^2): 1.6 LA A2 area: 15.0 cm2 RA long axis: 4.7 cm LA A4 area: 18.0 cm2 RA area: 16.9 cm2 LA length (vol): 4.9 cm RA vol: 51.6 ml LA vol: 47.0 ml RA : 28.8 ml/m2 LA vol index: 26.2 ml/m2 IVC diam: 1.7 cm RVD1 (basal): 3.1 cm TAPSE: 1.8 cm Doppler Measurements & Calculations Ao V2 max: 123.3 cm/sec LVOT Max Larry: 102.8 cm/sec Ao V2 mean: 88.4 cm/sec LV V1 max P.2 mmHg Ao max P.1 mmHg LV V1 VTI: 18.0 cm Ao mean P.4 mmHg sev ratio: 0.78 Ao V2 VTI: 23.2 cm MV E max larry: 83.3 cm/sec TR max larry: 202.2 cm/sec MV A max larry: 47.6 cm/sec TR max P.4 mmHg MV E/A: 1.8 PA V2 max: 70.4 cm/sec Med Peak E' Larry: 12.6 cm/sec PA V2 mean: 54.1 cm/sec E/E' med: 6.6 PA mean P.3 mmHg Lat Peak E' Larry: 15.0 cm/sec PA Accel Time: 0.12 sec E/E' lat: 5.5 E/e' average: 6.1 MV dec time: 0.18 sec Reading Physician:03:14 PM
== END ==
PROVIDERS: PCP Student in an Organized Health Care Education/Training Program; Referring Provider Student in an Organized Health Care Education/Training Program; Visit Provider Student in an Organized Health Care Education/Training Program
DX: R01.1 Cardiac murmur, unspecified (principal); F19.11 Other psychoactive substance abuse, in remission
CPT/HCPCS: 93306

== ENCOUNTER 2020-02-14 21:38 | Emergency (ER) | payer OTHER, MEDICAID, SELFPAY ==
--- NOTE | 2020-02-14 21:47 | ED_ITS ---
HPI - Headache General Chief Complaint: Headache Stated Complaint: MIGRAINE LEFT LEG PAIN Time Seen by Provider: 02/14/20 21:40 Source: patient and family Mode of arrival: Ambulatory Limitations: no limitations History of Present Illness HPI Narrative: 34-year-old female smoker with history of migraines and multiple recent visits presents with her significant other in the chief complaint of a migraine, consistent with her typical headache over the past day or 2. She states that it is an 8/10 in generalized and squeezing. It is made worse with bright lights and loud noises. She typically is able to take Imitrex at home but her insurance limits her to 9 pills per month. She has recently seen her primary care provider and has an upcoming appointment with a headache specialist. She denies any recent injury, fever or chills. She denies any blurred vision or trouble with speech. Complaint: migraine Onset (ago): day(s) Onset description: gradual Location: diffuse Severity: moderate Quality: aching and throbbing Relieving factors: dark room Exacerbating factors: light and noise Associated symptoms: nausea Related Data Home Medications Medication Instructions Recorded Confirmed bupropion HCl 300 mg 24 hr tablet, 300 mg PO QAM 02/01/20 02/01/20 extended release buspirone 10 mg tablet 10 mg PO TID 02/01/20 02/01/20 naltrexone 50 mg tablet 50 mg PO DAILY 02/01/20 02/01/20 propranolol 20 mg tablet 20 mg PO TID 02/01/20 02/01/20 Previous Rx's Medication Instructions Recorded ondansetron 4 mg PO Q6H PRN #10 tab 12/20/19 sumatriptan succinate See Rx Instructions .ROUTE 12/20/19 .COMPLEX #10 tab nicotine 1 patch TRANSDERMAL DAILY #30 patch 12/21/19 21mg/24hr-14mg/24hr-7mg/24hr daily transderm patch,sequential ketorolac 10 mg PO Q6H PRN #14 tab 02/14/20 Allergies Allergy/AdvReac Type Severity Reaction Status Date / Time Benzodiazepines AdvReac Severe History of Verified 02/01/20 10:33 addiction hydrocodone AdvReac Severe History of Verified 02/01/20 10:33 addiction; itching Review of Systems Constitutional Constitutional: Denies chills, Denies fatigue, Denies fever(s), Denies frequent falls, Reports headache(s), Denies lethargy and Denies weakness Eyes Eyes: Denies change in vision, Denies eye discharge, Denies irritation and Denies loss of vision ENT Ears, Nose, Mouth, and Throat: Denies change in voice, Denies dizziness, Reports headache(s), Denies neck pain, Denies sore throat and Denies throat swelling Cardiovascular Cardiovascular: Denies chest pain, Denies irregular heart rhythm, Denies lightheadedness, Denies palpitations, Denies dyspnea, Denies dyspnea on exertion and Denies orthopnea Respiratory Respiratory: Denies cough, Denies dyspnea, Denies dyspnea on exertion and Denies wheezing Gastrointestinal Gastrointestinal: Denies abdominal pain, Denies change in bowel habits, Denies diarrhea, Denies nausea and Denies vomiting Musculoskeletal Musculoskeletal: Denies neck pain and Denies numbness Integumentary/Breasts Skin/Breast: Denies pruritus, Denies erythema, Denies rash and Denies wounds Neurologic Neurologic: Denies behavioral changes, Denies confusion, Denies dizziness, Denies frequent falls, Reports headache(s), Denies loss of vision, Denies numbness and Denies weakness Psychiatric Psychiatric: Denies anxiety, Denies behavioral changes, Denies confusion, Denies depression, Denies homicidal ideation and Denies suicidal ideation Endocrine Endocrine: Denies fatigue, Denies flushing and Denies palpitations Hematologic/Lymphatic Hematologic/Lymphatic: Denies easy bruising Allergic/Immunologic Allergic/Immunologic: Denies urticaria, Denies throat swelling and Denies wheezing Patient History Medical History Anxiety (Acute) Depression (Acute) Drug abuse and dependence (Acute) Migraine headache (Acute) Social History Smoking Status: Current every day smoker Smoking Status: Current every day smoker alcohol intake frequency: other Substance Use Type: does not use and former substance user Exam Narrative Exam Narrative: GENERAL: [34] year old patient appears stated age. Well- nourished, well-developed patient, in mild distress. HEAD: Atraumatic. Normocephalic. EYES: Pupils equal round and reactive. Extraocular motions intact. No scleral icterus. No injection or drainage. ENT: Nose without bleeding, purulent drainage. Throat without erythema, tonsillar hypertrophy or exudate. Airway patent. NECK: Trachea midline. Non tender CARDIOVASCULAR: Regular rate and rhythm without murmurs, gallops, or rubs. RESPIRATORY: Clear to auscultation. Breath sounds equal bilaterally. No wheezes, rales, or rhonchi. GASTROINTESTINAL: Abdomen soft, non-tender, nondistended. EXTREMITIES: No edema or joint tenderness. BACK: Nontender without deformity or crepitance. No flank tenderness. NEURO: AOx3. SKIN: No rash or erythema of visible areas Initial Vital Signs Initial Vital Signs: Vital Signs Pulse Rate 76 02/14/20 22:07 Blood Pressure 115/72 02/14/20 22:07 Pulse Oximetry 98 02/14/20 22:07 Course Orders Ordered: Discontinued Medications Ketorolac Tromethamine (Toradol) 60 mg IM NOW ONE Stop: 02/14/20 22:22 Last Admin: 02/14/20 22:32 Dose: 60 mg Documented by: JONAS Sumatriptan Succinate (Imitrex) 6 mg SUBCUT NOW ONE Stop: 02/14/20 22:22 Last Admin: 02/14/20 22:33 Dose: 6 mg Documented by: JONAS Vital Signs Vital signs: Vital Signs - 8 hr 02/14/20 22:07 02/14/20 22:09 02/14/20 22:19 Temperature 97.9 F Pulse Rate 76 69 Respiratory Rate 18 Blood Pressure 115/72 115/72 Pulse Oximetry 98 97 98 02/14/20 22:35 02/14/20 22:37 Temperature Pulse Rate Respiratory Rate 16 Blood Pressure 114/76 114/76 Pulse Oximetry 97 Discharge Plan Departure Patient Disposition: Home Clinical Impression: Migraine Qualifiers: Migraine type: unspecified Status migrainosus presence: without status migrainosus Intractability: not intractable Qualified Code(s): G43.909 - Migraine, unspecified, not intractable, without status migrainosus Discharge Date/Time: 02/14/20 22:38 Instructions: DI for Migraine Activity Restrictions/Additional Instructions: *You have been diagnosed with [migraine headache] *What to do: *Take medications as directed: Sent to [facility] at your request *Follow up with your primary care provider in 2-3 days, call for an appointment. Let them know you were seen in the Emergency Department and that we ask that you be seen in follow up *Return to ER if you should have any new, worsening or concerning symptoms Prescriptions: New ketorolac 10 mg tablet 10 mg PO Q6H PRN (Reason: pain) Qty: 14 RF: 0 No Action nicotine 21-14-7 mg/24 hr patch, TD daily, sequential 1 patch transdermal DAILY Qty: 30 RF: 1 buspirone 10 mg tablet 10 mg PO TID RF: 0 bupropion HCl [Wellbutrin XL] 300 mg tablet extended release 24 hr 300 mg PO QAM RF: 0 propranolol 20 mg tablet 20 mg PO TID RF: 0 naltrexone 50 mg tablet 50 mg PO DAILY RF: 0 sumatriptan succinate 25 mg tablet See Rx Instructions .ROUTE .COMPLEX Qty: 10 RF: 0 ondansetron 4 mg tablet,disintegrating 4 mg PO Q6H PRN (Reason: nausea and vomiting) Qty: 10 RF: 0 Referrals: Danilo Arcos MD [Primary Care Provider] -
[2020-02-14 22:07] VITALS: BP 115/72; PULSE 76; O2SAT 98
[2020-02-14 22:09] VITALS: O2SAT 97
[2020-02-14 22:19] VITALS: BP 115/72; PULSE 69; RESP 18; TEMP 36.6; O2SAT 98; BMI 33.2
[2020-02-14] MEDS: KETOROLAC 60 MG/2 ML VIAL IM (22:32)
[2020-02-14] MEDS: SUMAtriptan 6 MG/0.5 ML VIAL SUBCUT (22:33)
[2020-02-14 22:35] VITALS: BP 114/76
[2020-02-14 22:37] VITALS: BP 114/76; RESP 16; O2SAT 97
== END 2020-02-14 22:38 | disposition home or self-care (01) ==
PROVIDERS: Emergency Provider Emergency Medicine; PCP Student in an Organized Health Care Education/Training Program
DX: G43.909 Migraine, unspecified, not intractable, without status migrainosus (principal)
CPT/HCPCS: 96372; 99282; 99283; J1885; J3030

== ENCOUNTER 2020-07-01 08:53 | Emergency (ER) | payer OTHER, MEDICAID, SELFPAY ==
[2020-07-01 09:04] VITALS: BP 115/77; PULSE 72; RESP 14; TEMP 36.7; O2SAT 98
[2020-07-01 09:10] VITALS: BMI 29.0
--- NOTE | 2020-07-01 09:58 | ED.HA ---
HPI - Headache General Chief Complaint: Headache Stated Complaint: MIGRANE FOR FEW DAYS Time Seen by Provider: 07/01/20 09:58 Source: patient and old records reviewed Mode of arrival: Ambulatory Limitations: no limitations History of Present Illness HPI Narrative: This is a 34-year-old female comes in with complaint of migraine. Patient has a history of migraines with multiple prior visits for same, she also has a history of polysubstance abuse and is in remission. Patient states that this is her typical migraine-type headache. She states it started early Wednesday morning, she is on a trip did and she has tried this on Wednesday as well as Wednesday without resolution. She states that her migraine will improvement sometimes resolved but then returns after several hours. Patient states she does have sensitivity to bright lights and loud noises. She has had nausea but no vomiting. She has not had any numbness, tingling or weakness, no fevers or chills or other neurologic changes. She is following with her primary care, Dr. Arcos as well as a neurologist. They have tried Topamax and she is currently taking a different once daily medication for migraine prophylaxis but does not recall the name. Patient states she has not had her tripped and today. Related Data Home Medications Medication Instructions Recorded Confirmed bupropion HCl 300 mg 24 hr tablet, 300 mg PO QAM 02/01/20 06/06/20 extended release buspirone 10 mg tablet 10 mg PO TID 02/01/20 06/06/20 propranolol 20 mg tablet 20 mg PO TID 02/01/20 06/06/20 keto fast diet PO 02/23/20 06/06/20 topiramate 25 mg tablet 25 mg PO DAILY 05/16/20 06/06/20 verapamil 120 mg 24 hr 120 mg PO DAILY 06/06/20 06/06/20 capsule,extended release Allergies Allergy/AdvReac Type Severity Reaction Status Date / Time Benzodiazepines AdvReac Severe History of Verified 06/06/20 15:23 addiction hydrocodone AdvReac Severe History of Verified 06/06/20 15:23 addiction; itching Review of Systems Review of Systems ROS Unobtainable: All systems reviewed & are unremarkable except as noted in HPI and below Patient History Medical History Anxiety Cervical strain Depression Drug abuse and dependence Hx of cardiac murmur Migraine headache Skin irritation due to topical agent Family History Mother Hypertension Social History marital status: unmarried,living together household members: significant other and children occupational status: employed Smoking Status: Current every day smoker alcohol intake: never substance use type: does not use additional social history: Has a history of drug abuse Smoking Status: Current every day smoker alcohol intake frequency: other Substance Use Type: does not use and former substance user Exam Narrative Exam Narrative: GEN: well nourished, well appearing female, alert and oriented x 3, patient appears to be in mild distress. HEENT: Atraumatic, pupils are equal round reactive to light, extraocular movements are intact. HEART: Regular rate and rhythm without murmur, clicks, rubs. LUNGS:Lungs clear to auscultation, no wheezes, rales, crackles, chest moves symmetrically ABD:bowel sounds normal, soft, non-tender, no guarding, rebound, rigidity, no masses noted, no hepatosplenomegaly :No CVA tenderness, [male/female exam] MSCL: Non-tender, no muscle atrophy, muscles strength 5/5 upper and lower extremities, full range of motion, normal gait NEURO:CN 2-12 intact, sensation normal. SKIN: no rash or other skin changes appreciated. Initial Vital Signs Initial Vital Signs: Vital Signs Temperature 98.1 F 07/01/20 09:04 Pulse Rate 72 07/01/20 09:04 Respiratory Rate 14 07/01/20 09:04 Blood Pressure 115/77 07/01/20 09:04 Pulse Oximetry 98 07/01/20 09:04 Scores GCS Shreya coma scale eye opening: Spontaneous [place] coma scale verbal response: Orientated [place] coma scale motor response: Obey commands [place] coma scale total score: 15 Course Orders Ordered: Discontinued Medications Ketorolac Tromethamine (Ketorolac 60 Mg/2 Ml Vial) 60 mg IM NOW ONE Stop: 07/01/20 10:14 Last Admin: 07/01/20 10:30 Dose: 60 mg Documented by: AMY Ondansetron HCl (Ondansetron 4 Mg Odt) 4 mg SL NOW ONE Stop: 07/01/20 10:14 Last Admin: 07/01/20 10:30 Dose: 4 mg Documented by: AMY Sumatriptan Succinate (Sumatriptan 6 Mg/0.5 Ml Vial) 6 mg SUBCUT NOW ONE Stop: 07/01/20 10:14 Last Admin: 07/01/20 10:30 Dose: 6 mg Documented by: AMY Reevaluation(s) Reevaluation #1: Patient is feeling much better she feels ready to return home. Time: 11:23 Vital Signs Vital signs: Vital Signs - 8 hr 07/01/20 11:35 Pulse Rate 60 Respiratory Rate 16 Blood Pressure 113/74 Pulse Oximetry 100 MDM - Headache MDM Narrative Medical decision making narrative: Patient has been here several times prior and often responds to IM ketorolac as well as sumatriptan subcutaneous. She has had migraine for several days which will resolve for several hours but then return. She has been taking her regular home medications as prescribed. Discharge Plan Departure Patient Disposition: Home Clinical Impression: Migraine Instructions: DI for Migraine Activity Restrictions/Additional Instructions: Follow up with your neurologist earlier if you are not having significant improvement in your symptoms or having increased frequency of symptoms. You may continue home medications as prescribed. You may take Tylenol up to a 1000 mg every 8 hours in addition to the medications given today. Return to the emergency department for fevers greater 100.4 F, severe rapidly worsening headaches, severe atypical headaches, new vision changes, persistent vomiting, new chest pain, shortness of breath, new numbness, tingling or weakness or other difficulty with movement or speech or other new or concerning symptoms. Prescriptions: No Action keto fast diet PO RF: 0 topiramate 25 mg tablet 25 mg PO DAILY RF: 0 verapamil 120 mg capsule,ext rel. pellets 24 hr 120 mg PO DAILY RF: 0 buspirone 10 mg tablet 10 mg PO TID RF: 0 bupropion HCl [Wellbutrin XL] 300 mg tablet extended release 24 hr 300 mg PO QAM RF: 0 propranolol 20 mg tablet 20 mg PO TID RF: 0 Referrals: Danilo Arcos MD [Primary Care Provider] -
[2020-07-01] MEDS: KETOROLAC 60 MG/2 ML VIAL IM (10:30)
[2020-07-01] MEDS: ONDANSETRON 4 MG ODT SL (10:30)
[2020-07-01] MEDS: SUMAtriptan 6 MG/0.5 ML VIAL SUBCUT (10:30)
[2020-07-01 11:35] VITALS: BP 113/74; PULSE 60; RESP 16; O2SAT 100
== END 2020-07-01 11:38 | disposition home or self-care (01) ==
PROVIDERS: Emergency Provider Emergency Medicine; PCP Student in an Organized Health Care Education/Training Program
DX: G43.909 Migraine, unspecified, not intractable, without status migrainosus (principal)
CPT/HCPCS: 96372; 99281; 99283; J1885; J3030

== ENCOUNTER → 2020-08-23 16:37 | Outpatient (CLI) | payer OTHER, MEDICAID, SELFPAY ==
--- NOTE | 2020-08-23 16:39 | DI.RAD.S_ITS ---
PROCEDURE: XR SHOULDER LT MIN 2V INDICATIONS: Left shoulder pain and weakness TECHNIQUE: 3 views of the shoulder were acquired. COMPARISON: None. FINDINGS: Bones: No acute fractures or dislocations. No suspicious bony lesions. Visualized ribs appear intact. Soft tissues: No suspicious soft tissue calcifications. IMPRESSION: No acute osseous abnormality. If clinical suspicion and/or symptoms persist, further assessment with repeat plain films, or advanced imaging (e.g., CT, MRI) may be helpful for further assessment. Dictated by: Nawaf Barrios M.D. on 08/23/2020 at 17:08 Approved by: Nawaf Barrios M.D. on 08/23/2020 at 17:09
== END ==
PROVIDERS: PCP Student in an Organized Health Care Education/Training Program; Referring Provider Student in an Organized Health Care Education/Training Program; Visit Provider Student in an Organized Health Care Education/Training Program
DX: M25.512 Pain in left shoulder (principal); R29.898 Other symptoms and signs involving the musculoskeletal system
CPT/HCPCS: 73030

== ENCOUNTER → 2020-08-27 15:41 | Outpatient (CLI) | payer OTHER, MEDICAID, SELFPAY ==
[2020-08-28 18:08] LABS: Urine N gonorrhoeae NOT DETECTED
[2020-08-28 18:40] LABS: Urine Chlamydia NOT DETECTED
== END ==
PROVIDERS: PCP Student in an Organized Health Care Education/Training Program; Visit Provider Registered Nurse
DX: N89.8 Other specified noninflammatory disorders of vagina (principal); Z20.2 Contact with and (suspected) exposure to infections with a predominantly sexual mode of transmission
CPT/HCPCS: 87210; 87491; 87591

== ENCOUNTER → 2020-08-27 16:24 | Outpatient (CLI) | payer OTHER, MEDICAID, SELFPAY ==
[2020-08-27 18:59] LABS: Hepatitis B Surface Antigen NEGATIVE s/c (NEGATIVE)
[2020-08-27 19:17] LABS: HIV 1 & 2 Ab/Ag 4th Gen Combo NEGATIVE (NEGATIVE); Hep C Virus Ab w/Reflex Quant NEGATIVE s/c (NEGATIVE)
[2020-08-28 23:38] LABS: HSV1IGG < 0.91 index (0.00-0.90)
[2020-08-29 08:08] LABS: RPR Screen Non Reactive (Non Reactive)
[2020-08-29 19:07] LABS: HSV I/II IgM 1.14 Ratio (0.00-0.90)
== END ==
PROVIDERS: PCP Student in an Organized Health Care Education/Training Program; Referring Provider Registered Nurse; Visit Provider Registered Nurse
DX: N89.8 Other specified noninflammatory disorders of vagina (principal); Z20.2 Contact with and (suspected) exposure to infections with a predominantly sexual mode of transmission
CPT/HCPCS: 36415; 86592; 86694; 86695; 86696; 86803; 87210; 87340; 87389; 87491; 87591

== ENCOUNTER → 2020-08-30 14:07 | Outpatient (CLI) | payer OTHER, MEDICAID, SELFPAY ==
--- NOTE | 2020-08-30 14:08 | DI.MRI.S_ITS ---
PROCEDURE: MR SHOULDER LT WO CON INDICATIONS: Left shoulder pain and weakness TECHNIQUE: Noncontrast oblique coronal T2 fast spin echo with fat saturation, oblique sagittal T1 spin echo and T2 fast spin echo with fat saturation, axial T1 spin echo and T2 fast spin echo with fat saturation through the shoulder. COMPARISON: None. FINDINGS: Image quality: Excellent. Rotator cuff: Tendinosis and low-grade bursal surface partial thickness tear involving distal supraspinatus near musculotendinous junction is seen. Distal infraspinatus tendon is intact. Distal subscapularis tendon is intact. Sagittal images demonstrate no significant muscle atrophy. Bones and bursae: No bone marrow contusions or fractures. Mild to moderate acromioclavicular joint osteoarthritis is seen with the inferior osteophyte formation depressing the musculotendinous junction of supraspinatus. The acromion demonstrates conventional anatomy, without an os acromiale. Small amount of joint effusion is seen. No significant subacromial subdeltoid bursal fluid. Capsule and soft tissues: In the absence of intra-articular contrast, the labrum and glenohumeral ligaments appear intact. The long head of the biceps tendon demonstrates normal location and morphology. The rotator interval appears normal, without fibrosis. The coracohumeral ligament is normal in thickness. IMPRESSION: 1. Distal supraspinatus tendinosis and low-grade bursal surface partial-thickness tear near musculotendinous junction. 2. Mild to moderate acromioclavicular joint osteoarthritic changes with downward osteophyte depressing on musculotendinous junction of supraspinatus. 3. No gross focal labral tear. Dictated by: Venancio Flores M.D. on 08/30/2020 at 15:40 Approved by: Venancio Flores M.D. on 08/30/2020 at 15:57
== END ==
PROVIDERS: PCP Student in an Organized Health Care Education/Training Program; Referring Provider Student in an Organized Health Care Education/Training Program; Visit Provider Student in an Organized Health Care Education/Training Program
DX: M25.512 Pain in left shoulder (principal); M75.112 Incomplete rotator cuff tear or rupture of left shoulder, not specified as traumatic; R29.898 Other symptoms and signs involving the musculoskeletal system
CPT/HCPCS: 73221

== ENCOUNTER 2020-09-01 16:19 | Emergency (ER) | payer OTHER, MEDICAID, SELFPAY ==
[2020-09-01 16:33] VITALS: BP 134/74; PULSE 86; RESP 16; TEMP 36.2; O2SAT 100; BMI 30.2
[2020-09-01] MEDS: ONDANSETRON 4 MG ODT SL (18:39)
[2020-09-01] MEDS: KETOROLAC 60 MG/2 ML VIAL IM (18:39)
[2020-09-01 18:44] VITALS: BP 122/80; PULSE 77; RESP 15; O2SAT 97
--- NOTE | 2020-09-02 00:09 | ED_ITS ---
HPI - Headache General Chief Complaint: Headache Stated Complaint: States she has a really bad migraine Time Seen by Provider: 09/01/20 18:03 Source: patient and family Mode of arrival: Ambulatory Limitations: no limitations History of Present Illness HPI Narrative: 35-year-old femaleDaily smoker with history of migraines presents with her significant other and a chief complaint of a migraine-type headache which has been present for the past month or so. She states it is about a 5/10, in its typical distribution, started gradually, worse with bright lights and loud noise and improves with rest. She has mild nausea but denies any vomiting. She denies any recent head injury. She has no neck pain. She denies any fever or chills. She denies focal neurologic findings such as numbness, tingling or weakness. She states her normal medications have not been helping her at home. MD Complaint: headache and migraine Onset (ago): week(s) Onset description: gradual Location: diffuse Severity: moderate Severity scale (1-10): 5 Quality: aching Relieving factors: dark room Exacerbating factors: light and noise Associated symptoms: nausea Treatments prior to arrival: migraine medication Related Data Home Medications Medication Instructions Recorded Confirmed bupropion HCl 300 mg 24 hr tablet, 300 mg PO QAM 02/01/20 08/27/20 extended release buspirone 10 mg tablet 10 mg PO TID 02/01/20 08/27/20 propranolol 20 mg tablet 20 mg PO TID 02/01/20 08/27/20 keto fast diet PO 02/23/20 08/27/20 topiramate 25 mg tablet 25 mg PO DAILY 05/16/20 08/27/20 verapamil 120 mg 24 hr 360 mg PO DAILY cap 08/23/20 08/27/20 capsule,extended release Previous Rx's Medication Instructions Recorded sumatriptan succinate 6 mg/0.5 mL 6 mg SUBCUT ONCE #0.5 ml 08/23/20 subcutaneous solution metronidazole 0.75 % vaginal gel 1 appful VAGINAL DAILY 57 Days #70 08/27/20 g valacyclovir 1 gram tablet 1,000 mg PO BID 10 Days #20 tab 08/29/20 ketorolac 10 mg PO Q6H PRN #14 tab 09/01/20 Allergies Allergy/AdvReac Type Severity Reaction Status Date / Time Benzodiazepines AdvReac Severe History of Verified 08/27/20 14:58 addiction hydrocodone AdvReac Severe History of Verified 08/27/20 14:58 addiction; itching Review of Systems Constitutional Constitutional: Denies chills, Denies fatigue, Denies fever(s), Denies frequent falls, Reports headache(s), Denies lethargy and Denies weakness Eyes Eyes: Denies change in vision, Denies eye discharge, Denies irritation and Denies loss of vision ENT Ears, Nose, Mouth, and Throat: Denies change in voice, Denies dizziness, Reports headache(s), Denies neck pain, Denies sore throat and Denies throat swelling Cardiovascular Cardiovascular: Denies chest pain, Denies irregular heart rhythm, Denies lightheadedness, Denies palpitations, Denies dyspnea, Denies dyspnea on exertion and Denies orthopnea Respiratory Respiratory: Denies cough, Denies dyspnea, Denies dyspnea on exertion and Denies wheezing Gastrointestinal Gastrointestinal: Denies abdominal pain, Denies change in bowel habits, Denies diarrhea, Reports nausea and Denies vomiting Musculoskeletal Musculoskeletal: Denies neck pain and Denies numbness Integumentary/Breasts Skin/Breast: Denies pruritus, Denies erythema, Denies rash and Denies wounds Neurologic Neurologic: Denies behavioral changes, Denies confusion, Denies dizziness, Denies frequent falls, Reports headache(s), Denies loss of vision, Denies numbness and Denies weakness Psychiatric Psychiatric: Denies anxiety, Denies behavioral changes, Denies confusion, Denies depression, Denies homicidal ideation and Denies suicidal ideation Endocrine Endocrine: Denies fatigue, Denies flushing and Denies palpitations Hematologic/Lymphatic Hematologic/Lymphatic: Denies easy bruising Allergic/Immunologic Allergic/Immunologic: Denies urticaria, Denies throat swelling and Denies wheezing Patient History Medical History Anxiety Depression Drug abuse and dependence Hx of cardiac murmur Migraine headache Family History Mother Hypertension Social History marital status: unmarried,living together household members: significant other and children occupational status: employed Smoking Status: Current every day smoker alcohol intake: never substance use type: does not use additional social history: Has a history of drug abuse Smoking Status: Current every day smoker alcohol intake frequency: other Substance Use Type: does not use and former substance user Exam Narrative Exam Narrative: GENERAL: [35] year old patient appears stated age. Well- nourished, well-developed patient, in mild distress. GCS 15 HEAD: Atraumatic. Normocephalic. EYES: Pupils equal round and reactive. Extraocular motions intact. No scleral icterus. No injection or drainage. ENT: Nose without bleeding, purulent drainage. Throat without erythema, tonsillar hypertrophy or exudate. Airway patent. NECK: Trachea midline. Non tender. No meningeal signs CARDIOVASCULAR: Regular rate and rhythm without murmurs, gallops, or rubs. RESPIRATORY: Clear to auscultation. Breath sounds equal bilaterally. No wheezes, rales, or rhonchi. GASTROINTESTINAL: Abdomen soft, non-tender, nondistended. EXTREMITIES: No edema or joint tenderness. BACK: Nontender without deformity or crepitance. No flank tenderness. NEURO: AOx3. SKIN: No rash or erythema of visible areas NIH Stroke Scale 1a. LOC: Patient is alert and keenly responsive (0) 1b. LOC Questions: Patient answers both LOC questions accurately (0) 1c. LOC Commands: Patient performs both tasks correctly (0) 2. Best Gaze: Normal (0) 3. Visual: No visual loss (0) 4. Facial palsy: Normal symmetrical movements (0) 5. Motor arm: No drift (0) 6. Motor leg: No drift (0) 7. Limb ataxia: Absent (0) 8. Sensory: Normal (0) 9. Best language: No aphasia; normal (0) 10. Dysarthria: Normal (0) 11. Extinction and inattention: No abnormality (0) NIHSS: 0 Initial Vital Signs Initial Vital Signs: Vital Signs Temperature 97.1 F L 09/01/20 16:33 Pulse Rate 86 09/01/20 16:33 Respiratory Rate 16 09/01/20 16:33 Blood Pressure 134/74 09/01/20 16:33 Pulse Oximetry 100 09/01/20 16:33 Course Orders Ordered: Discontinued Medications Ketorolac Tromethamine (Ketorolac 60 Mg/2 Ml Vial) 60 mg IM NOW ONE Stop: 09/01/20 18:08 Last Admin: 09/01/20 18:39 Dose: 60 mg Documented by: LAUREN Ondansetron HCl (Ondansetron 4 Mg Odt) 4 mg SL NOW ONE Stop: 09/01/20 18:08 Last Admin: 09/01/20 18:39 Dose: 4 mg Documented by: LAUREN Ondansetron HCl (Ondansetron 4 Mg Odt) 4 mg SL NOW ONE Stop: 09/01/20 18:36 Vital Signs Vital signs: Vital Signs - 8 hr 09/01/20 16:33 09/01/20 18:44 Temperature 97.1 F L Pulse Rate 86 77 Respiratory Rate 16 15 Blood Pressure 134/74 122/80 Pulse Oximetry 100 97 MDM - Headache MDM Narrative Medical decision making narrative: Moderate headache is typical for her. Gradual in onset, diffuse, worse with lights and noise. Acts like her typical migraines Headache considerations include, but not limited to: Subarachnoid hemorrhage, but unlikely as patient denies sudden onset of pain, not worst of life, or neck pain Meningitis considered, but thought unlikely given lack of Brudzinski's, Kernig's sign, altered mental status or fever Giant cell arteritis considered, but thought unlikely given lack of unilateral findings, pain in scientology, vision change HTN Emergency considered, but thought unlikely given normal vitals Other serious diagnoses considered unlikely given lack of red flag findings such as sudden onset, increasing frequency, immunocompromise, systemic signs (fever, chills, stiff neck, or rash), focal neurologic findings, trauma, blood thinners, etc. Patient understands and agrees with diagnosis and plan. Return precautions given and questions answered to their apparent satisfaction. Discharge Plan Departure Patient Disposition: Home Clinical Impression: Migraine Instructions: DI for Migraine Activity Restrictions/Additional Instructions: *You have been diagnosed with [migraine headache] *What to do: *Take medications as directed: Prescription for Toradol sent to [facility] *Follow up with your primary care provider in 2-3 days, call for an appointment. Let them know you were seen in the Emergency Department and that we ask that you be seen in follow up *Return to ER if you should have any new, worsening or concerning symptoms such worsening pain, persistent vomiting, fever > 101F, Prescriptions: New ketorolac 10 mg tablet 10 mg PO Q6H PRN (Reason: pain) Qty: 14 RF: 0 No Action valacyclovir 1 gram tablet 1,000 mg PO BID 10 Days Qty: 20 RF: 0 keto fast diet PO RF: 0 topiramate 25 mg tablet 25 mg PO DAILY RF: 0 verapamil 120 mg capsule,ext rel. pellets 24 hr 360 mg PO DAILY RF: 0 sumatriptan succinate 6 mg/0.5 mL solution 6 mg SUBCUT ONCE Qty: 0.5 RF: 0 metronidazole 0.75 % gel 1 appful vaginal DAILY 57 Days Qty: 70 RF: 0 buspirone 10 mg tablet 10 mg PO TID RF: 0 bupropion HCl [Wellbutrin XL] 300 mg tablet extended release 24 hr 300 mg PO QAM RF: 0 propranolol 20 mg tablet 20 mg PO TID RF: 0 Referrals: Danilo Arcos MD [Primary Care Provider] -
== END 2020-09-01 18:45 | disposition home or self-care (01) ==
PROVIDERS: Emergency Provider Emergency Medicine; PCP Student in an Organized Health Care Education/Training Program
DX: G43.909 Migraine, unspecified, not intractable, without status migrainosus (principal)
CPT/HCPCS: 96372; 99281; 99283; J1885

== ENCOUNTER 2020-10-15 12:18 | Emergency (ER) | payer OTHER, MEDICAID, SELFPAY ==
[2020-10-15] VITALS (8 sets, daily range): BP systolic 83–110; BP diastolic 52–64; PULSE 64–81; RESP 16–19; TEMP 36.8; O2SAT 95–100; BMI 31.1
--- NOTE | 2020-10-15 12:25 | PC.NURSE ---
pt in the bathroom when called into triage.
--- NOTE | 2020-10-15 12:26 | DI.RAD.S_ITS ---
PROCEDURE: XR CHEST 2V INDICATIONS: pain on inspiration/smoker TECHNIQUE: 2 views of the chest were acquired. COMPARISON: [facility], , XR CHEST 2V, 10/11/2019, 18:10. FINDINGS: Surgical changes and devices: None. Lungs and pleura: Lungs are clear. No pleural effusions or pneumothorax. Mediastinum: Mediastinal contours are normal. Heart size is normal. Bones and chest wall: No suspicious bony abnormalities. Soft tissues appear unremarkable. IMPRESSION: No acute cardiopulmonary disease. Dictated by: Jose Lauren M.D. on 10/15/2020 at 13:58 Approved by: Jose Lauren M.D. on 10/15/2020 at 13:58
[2020-10-15 12:48] LABS: Bacteria Urine None Seen; RBC Urine None Seen (0-5/HPF); WBC Urine None Seen (0-5/HPF)
[2020-10-15 12:50] LABS: Appearance Urine UA CLEAR; Bilirubin Urine UA NEGATIVE (NEGATIVE); Color Urine UA YELLOW; Glucose Urine UA NEGATIVE (Negative); Ketones Urine UA NEGATIVE (NEGATIVE); Leukocyte Esterase Urine UA NEGATIVE (NEGATIVE); Nitrite Urine UA NEGATIVE (Negative); Occult Blood Urine UA NEGATIVE (Negative); Protein Urine UA NEGATIVE (Negative); Urobilinogen Urine UA 0.2 E.U./dL (0.2)
[2020-10-15 12:55] LABS: Culture Indicated Urine Cult Not Indicated; Urine Comments Microscopic Normal
--- NOTE | 2020-10-15 17:00 | ED.CHESTPAIN ---
HPI - Chest Pain General Chief Complaint: Upper Respiratory Symptoms Stated Complaint: RIGHT SIDE OF CHEST PAIN Time Seen by Provider: 10/15/20 16:40 Source: patient and other (Boyfriend) History of Present Illness HPI narrative: Patient complains of reproducible substernal chest pain that started about 10 or 11:00 a.m. this morning. This has resolved. was reproducible. On deep inspiration towards the end it would hurt. No recent long travel no history of blood clots in legs or lungs. No family history of blood clots in legs or lungs or any coronary artery disease. Patient does smoke. No history of asthma or emphysema. Patient states this chest pain is not not not new. She gets this about twice a year for the past 9 years. Has never been seen for it before. Currently no chest pain. She does have a headache. She has not eaten lunch she says. No recent changes in health. No exertional chest pain or dyspnea. No fatigue. Related Data Home Medications Medication Instructions Recorded Confirmed bupropion HCl 300 mg 24 hr tablet, 300 mg PO QAM 02/01/20 09/02/20 extended release buspirone 10 mg tablet 10 mg PO TID 02/01/20 09/02/20 propranolol 20 mg tablet 20 mg PO TID 02/01/20 09/02/20 keto fast diet PO 02/23/20 09/02/20 topiramate 25 mg tablet 25 mg PO DAILY 05/16/20 09/02/20 verapamil 120 mg 24 hr 360 mg PO DAILY cap 08/23/20 09/02/20 capsule,extended release Allergies Allergy/AdvReac Type Severity Reaction Status Date / Time Benzodiazepines AdvReac Severe History of Verified 09/26/20 09:42 addiction hydrocodone AdvReac Severe History of Verified 09/26/20 09:42 addiction; itching Review of Systems Review of Systems Narrative: GENERAL: Denies chills, fatigue, malaise, fever, sweats. HEENT: Denies sinus pain, ear pain, sore throat RESPIRATORY: Denies dyspnea, cough CARDIOVASCULAR: Complaint chest pain, denies palpitations GASTROINTESTINAL: Denies nausea, vomiting, abdominal pain : Denies dysuria, frequency, hematuria MUSCULOSKELETAL: denies muscle or bony pain SKIN: Denies rash, skin lesions NEUROLOGIC: Denies weakness, numbness, complains headache ROS Unobtainable: All systems reviewed & are unremarkable except as noted in HPI and below Patient History Medical History Anxiety Depression Drug abuse and dependence Hx of cardiac murmur Migraine headache Family History Mother Hypertension Social History marital status: unmarried,living together household members: significant other and children occupational status: employed Smoking Status: Current every day smoker alcohol intake: never substance use type: does not use additional social history: Has a history of drug abuse Smoking Status: Current every day smoker alcohol intake frequency: other Substance Use Type: does not use and former substance user Exam Narrative Exam Narrative: GENERAL: in no distress, not toxic not dyspneic HEAD: Normocephalic. EYES: Pupils equal round No scleral icterus. No injection no discharge ENT: Mucous membranes moist. NECK: Trachea midline. CARDIOVASCULAR: Regular rate and rhythm without murmurs RESPIRATORY: Clear to auscultation. Breath sounds equal bilaterally. No wheezes, rales, or rhonchi. GASTROINTESTINAL: Abdomen soft, non-tender EXTREMITIES: No gross deformities. BACK: No flank tenderness. NEURO: AOx4. SKIN: Warm and dry PSYCH: Not anxious, is cooperative Initial Vital Signs Initial Vital Signs: Vital Signs Temperature 98.2 F 10/15/20 12:38 Pulse Rate 75 10/15/20 12:38 Respiratory Rate 16 10/15/20 12:38 Pulse Oximetry 98 10/15/20 12:38 Scores HEART Score Heart Score history: Slightly Suspicious Heart Score EKG: Normal Heart Score Age: < 45 years old Heart Score risk factors: No known risk factors Heart Score troponin: < or = to normal limit Heart Score Total: 0 Course Course Course Narrative: Remains chest pain-free during course of stay Orders Ordered: Discontinued Medications Acetaminophen (Acetaminophen 325 Mg Tablet) 975 mg PO NOW ONE Stop: 10/15/20 16:59 Last Admin: 10/15/20 17:28 Dose: 975 mg Documented by: CRISTINA Sodium Chloride (Normal Saline 0.9%) 1,000 mls @ 1,000 mls/hr IV BOLUS ONE Stop: 10/15/20 17:57 Last Infusion: 10/15/20 18:29 Dose: 0 mls/hr Documented by: Admin: 10/15/20 17:29 Dose: 1,000 mls/hr Documented by: CRISTINA Reevaluation(s) Reevaluation #1: Patient has eaten. Had IV fluids. Tylenol as well. Feels much better no headache. No chest pain. Reviewed results with patient and boyfriend. They desire discharge home. She does have a primary care Dr. paz Time: 18:25 Vital Signs Vital signs: Vital Signs - 8 hr 10/15/20 12:38 10/15/20 17:06 10/15/20 17:30 Temperature 98.2 F Pulse Rate 75 64 70 Respiratory Rate 16 Blood Pressure 83/52 L Pulse Oximetry 98 98 99 10/15/20 17:34 10/15/20 17:47 10/15/20 18:00 Temperature Pulse Rate 72 77 72 Respiratory Rate 19 Blood Pressure 83/52 L 99/58 L 90/55 L Pulse Oximetry 98 98 97 10/15/20 18:30 10/15/20 18:38 Temperature Pulse Rate 81 79 Respiratory Rate 16 Blood Pressure 90/53 L 110/64 Pulse Oximetry 98 100 MDM - Chest Pain Differential Diagnosis Differential diagnosis: Likely pneumothorax, atypical chest pain, costochondritis, chest pain and other (Pleurisy) Lab Data Attestation: I reviewed the patient's lab results. Result diagrams: 10/15/20 16:36 10/15/20 16:36 Labs: Lab Results 10/15/20 10/15/20 10/15/20 Range/Units 12:40 16:36 16:36 WBC 6.7 (4.5-11.0) X10^3/uL RBC 4.01 (4.0-5.2) X10^6/uL Hgb 13.9 (12.0-16.0) g/dL Hct 40.2 (36-46) % MCV 100.4 H (80-100) fL MCH 34.8 H (26-34) PG MCHC 34.6 (30-36) % RDW 12.7 (11.6-14.8) % Plt Count 184 (150-400) X10^3/uL Neut % (Auto) 61.2 (50-75) % Lymph % (Auto) 33.3 (25-40) % Talbot % (Auto) 4.3 (3-14) % Eos % (Auto) 0.7 L (2-4) % Baso % (Auto) 0.5 (0-2) % Neut # (Auto) 4100 (8348-6821) /uL Lymph # (Auto) 2200 (2025-0619) /uL Talbot # (Auto) 300 (0-900) /uL Eos # (Auto) 0 (0-450) /uL Baso # (Auto) 0 (0-100) /uL D-Dimer < 200 (<230) ng/mL Sodium (137-145) mmol/L Potassium (3.4-5.1) mmol/L Chloride (98-107) mmol/L Carbon Dioxide (22-32) mmol/L BUN (7-17) mg/dL Creatinine (0.52-1.04) mg/dL Estimated GFR (>60) mL/min BUN/Creatinine Ratio (6-22) Glucose (70-100) mg/dL Calcium (8.4-10.2) mg/dL Total Bilirubin (0.2-1.3) mg/dL AST (14-36) IU/L ALT (<35) IU/L Alkaline Phosphatase (38-126) U/L Total Creatine Kinase (30-135) U/L CK-MB (CK-2) CK-MB (CK-2) Rel Index Troponin I (0.01-0.034) ng/mL Total Protein (6.3-8.2) g/dL Albumin (3.5-5.0) g/dL Globulin (1.7-4.1) g/dL Albumin/Globulin Ratio (1.0-2.8) Serum , Qual (Negative) Urine Color Yellow Urine Appearance Clear Urine pH 7.0 (4.5-8.0) Ur Specific Hammond 1.010 (1.000-1.035) Urine Protein Negative (Negative) Urine Glucose (UA) Negative (Negative) g/dL Urine Ketones Negative (NEGATIVE) Urine Occult Blood Negative (Negative) Urine Nitrate Negative (Negative) Urine Bilirubin Negative (NEGATIVE) Urine Urobilinogen 0.2 (0.2) E.U./dL Ur Leukocyte Esterase Negative (NEGATIVE) Urine RBC None seen (0-5/HPF) Urine WBC None seen (0-5/HPF) Urine Bacteria None seen (None) Ur Culture Indicated? Cult not indicated Micro UA Comment Microscopic normal 10/15/20 10/15/20 Range/Units 16:36 16:36 WBC (4.5-11.0) X10^3/uL RBC (4.0-5.2) X10^6/uL Hgb (12.0-16.0) g/dL Hct (36-46) % MCV (80-100) fL MCH (26-34) PG MCHC (30-36) % RDW (11.6-14.8) % Plt Count (150-400) X10^3/uL Neut % (Auto) (50-75) % Lymph % (Auto) (25-40) % Talbot % (Auto) (3-14) % Eos % (Auto) (2-4) % Baso % (Auto) (0-2) % Neut # (Auto) (8859-5211) /uL Lymph # (Auto) (4915-2704) /uL Talbot # (Auto) (0-900) /uL Eos # (Auto) (0-450) /uL Baso # (Auto) (0-100) /uL D-Dimer (<230) ng/mL Sodium 138 (137-145) mmol/L Potassium 4.2 (3.4-5.1) mmol/L Chloride 110 H (98-107) mmol/L Carbon Dioxide 26 (22-32) mmol/L BUN 12 (7-17) mg/dL Creatinine 0.74 (0.52-1.04) mg/dL Estimated GFR > 60.0 (>60) mL/min BUN/Creatinine Ratio 16.2 (6-22) Glucose 95 (70-100) mg/dL Calcium 9.0 (8.4-10.2) mg/dL Total Bilirubin 0.3 (0.2-1.3) mg/dL AST 20 (14-36) IU/L ALT 23 (<35) IU/L Alkaline Phosphatase 48 (38-126) U/L Total Creatine Kinase 30 (30-135) U/L CK-MB (CK-2) TNP CK-MB (CK-2) Rel Index TNP Troponin I < 0.012 (0.01-0.034) ng/mL Total Protein 6.8 (6.3-8.2) g/dL Albumin 4.0 (3.5-5.0) g/dL Globulin 2.8 (1.7-4.1) g/dL Albumin/Globulin Ratio 1.4 (1.0-2.8) Serum , Qual Negative (Negative) Urine Color Urine Appearance Urine pH (4.5-8.0) Ur Specific Hammond (1.000-1.035) Urine Protein (Negative) Urine Glucose (UA) (Negative) g/dL Urine Ketones (NEGATIVE) Urine Occult Blood (Negative) Urine Nitrate (Negative) Urine Bilirubin (NEGATIVE) Urine Urobilinogen (0.2) E.U./dL Ur Leukocyte Esterase (NEGATIVE) Urine RBC (0-5/HPF) Urine WBC (0-5/HPF) Urine Bacteria (None) Ur Culture Indicated? Micro UA Comment Imaging Data Chest x-ray: Radiologist's Impression: [address] [id number] ReportSigned Patient: Brie Jaramillo [facility]#: [id number]: 1985Acct:[id number]/Sex: 35 / FDate of Service: 10/15/20Loc: EDAccession Number: [id number] Procedure: XR chest 2V Ordering Provider: Jeremy Zheng MD PROCEDURE: XR CHEST 2V INDICATIONS: pain on inspiration/smoker TECHNIQUE: 2 views of the chest were acquired. COMPARISON: [facility], , XR CHEST 2V, 10/11/2019, 18:10. FINDINGS: Surgical changes and devices: None. Lungs and pleura: Lungs are clear. No pleural effusions or pneumothorax. Mediastinum: Mediastinal contours are normal. Heart size is normal. Bones and chest wall: No suspicious bony abnormalities. Soft tissues appear unremarkable. IMPRESSION: No acute cardiopulmonary disease. Dictated by: Jose Lauren M.D. on 10/15/2020 at 13:58 Approved by: Jose Lauren M.D. on 10/15/2020 at 13:58 ECG Data Attestation: I personally reviewed and interpreted this ECG as follows: Interpretation: Normal sinus rhythm rate 69, normal EKG. MDM Narrative Medical decision making narrative: Appropriate for discharge home. Pain was reproducible. This is not the 1st episode. Has had episodes in the past. CP per pt is always reproducible. No repeat heart enzymes indicated. Low heart risk factors. Likely pleurisy versus costochondritis, chest wall pain Discharge Plan Departure Patient Disposition: Home Clinical Impression: Acute chest wall pain Instructions: DI for Costochondritis, DI for Chest Pain Activity Restrictions/Additional Instructions: Return if worse or if any questions or concerns. See family doctor this week for recheck. Stop smoking. May take [id number] ibuprofen for pain Prescriptions: No Action keto fast diet PO RF: 0 topiramate 25 mg tablet 25 mg PO DAILY RF: 0 verapamil 120 mg capsule,ext rel. pellets 24 hr 360 mg PO DAILY RF: 0 buspirone 10 mg tablet 10 mg PO TID RF: 0 bupropion HCl [Wellbutrin XL] 300 mg tablet extended release 24 hr 300 mg PO QAM RF: 0 propranolol 20 mg tablet 20 mg PO TID RF: 0 Referrals: Danilo Arcos MD [Primary Care Provider] -
[2020-10-15 17:05] LABS: Add Manual Diff / Slide Review NO; Basophils Absolute Auto 0 /uL (0-100); Basophils Percent Auto 0.5 % (0-2); Eosinophils Absolute Auto 0 /uL (0-450); Eosinophils Percent Auto 0.7 % (2-4); Hematocrit 40.2 % (36-46); Hemoglobin 13.9 g/dL (12.0-16.0); Lymphocytes Absolute Auto 2200 /uL (1100-4500); Lymphocytes Percent Auto 33.3 % (25-40); Mean Corpuscular HGB Conc 34.6 % (30-36); Mean Corpuscular Hemoglobin 34.8 PG (26-34); Mean Corpuscular Volume 100.4 fL (80-100); Monocytes Absolute Auto 300 /uL (0-900); Monocytes Percent Auto 4.3 % (3-14); Neutrophils Absolute Auto 4100 /uL (1500-7000); Neutrophils Percent Auto 61.2 % (50-75); Platelet Count 184 X10^3/uL (150-400); Red Blood Cell Count 4.01 X10^6/uL (4.0-5.2); Red Cell Distribution Width 12.7 % (11.6-14.8); White Blood Cell Count 6.7 X10^3/uL (4.5-11.0)
[2020-10-15 17:12] LABS: Pregnancy Test Serum,Qual Negative (Negative)
[2020-10-15 17:13] LABS: Alanine Aminotransferase 23 IU/L (<35); Albumin Globulin Ratio 1.4 (1.0-2.8); Alkaline Phosphatase 48 U/L (38-126); Aspartate Aminotransferase 20 IU/L (14-36); BUN Creatinine Ratio 16.2 (6-22); Bilirubin Total 0.3 mg/dL (0.2-1.3); Blood Urea Nitrogen 12 mg/dL (7-17); Carbon Dioxide 26 mmol/L (22-32); Chloride 110 mmol/L (98-107); Creatine Kinase 30 U/L (30-135); Estimated Glomerular Filt Rate > 60.0 mL/min (>60); Globulin 2.8 g/dL (1.7-4.1); Glucose 95 mg/dL (70-100); HEMOLYSIS 20 (0-50); Potassium 4.2 mmol/L (3.4-5.1); Sodium 138 mmol/L (137-145); Total Protein 6.8 g/dL (6.3-8.2)
[2020-10-15 17:15] LABS: D Dimer < 200 ng/mL (<230)
[2020-10-15 17:24] LABS: Troponin I < 0.012 ng/mL (0.01-0.034)
[2020-10-15] MEDS: ACETAMINOPHEN 325 MG TABLET 975 MG PO (17:28)
[2020-10-15] MEDS: SODIUM CHLORIDE 0.9% 1,000 ML 1000 ML IV (17:29)
== END 2020-10-15 18:39 | disposition home or self-care (01) ==
PROVIDERS: Emergency Provider Emergency Medicine; PCP Student in an Organized Health Care Education/Training Program
DX: R07.89 Other chest pain (principal)
CPT/HCPCS: 71046; 80053; 81001; 82550; 84484; 84703; 85025; 85379; 93005; 96360; 99281; 99284

== ENCOUNTER → 2020-12-07 11:23 | Outpatient (CLI) | payer OTHER, MEDICAID, SELFPAY ==
[2020-12-07 13:17] LABS: COVID19 -Nasal RAPID Negative (Negative)
== END ==
PROVIDERS: PCP Student in an Organized Health Care Education/Training Program; Visit Provider Physician Assistant
DX: Z20.822 Contact with and (suspected) exposure to COVID-19 (principal)
CPT/HCPCS: 87635

== ENCOUNTER 2020-12-09 08:41 | Day surgery (SDC) | payer OTHER, MEDICAID, SELFPAY ==
[2020-12-06 10:54] VITALS: BMI 30.8
[2020-12-09] VITALS (7 sets, daily range): BP systolic 95–117; BP diastolic 49–79; PULSE 62–85; RESP 12–20; TEMP 36.3–36.6; O2SAT 96–98; BMI 30.8
[2020-12-09] MEDS: LACTATED RINGERS 1,000 ML 42 ML IV (09:21)
--- NOTE | 2020-12-09 09:30 | PM.PREOP ---
Pre-operative Note COVID-19 COVID-19 status: Negative Result date/Date tested (Pos, Neg/Pending): 12/07/20 Interval Note History & Physical reviewed/Exam performed by Physician: Yes Changes to H&P: No
[2020-12-09] MEDS: CEFAZOLIN 2 GM/100 ML FROZ.PIGGY IV (10:25)
--- NOTE | 2020-12-09 10:32 | SUR.PREOP ---
Nerve block completed with dr clayton. Pt on continuous nasal cannula sating 96 percent. Block completed and successful.
--- NOTE | 2020-12-09 10:33 | SUR.PREOP ---
Pt to OR with ROIS frank.
--- NOTE | 2020-12-09 11:11 | SUR.OPER ---
Lateral on padded OR bed with chi bag positioner, head on pillow, gel axillary roll in place, bottom leg bent with gel pad under knee to foot, upper leg straight and supported with pillows. Operative arm secured in shoulder positioning suspension device. non-operative arm secured on padded arm board. Safety belt at hip, tape over blanket securing lower legs.
--- NOTE | 2020-12-09 11:18 | PM.PROC.1 ---
Procedures Date/Time Date of procedure: 12/09/20 Time of procedure: 10:15 General Procedure description: Ultrasound guided interscalene brachial plexus nerve block for post op pain control after left shoulder surgery by Dr. Angeles. Risk and benefits of procedure discussed with patient. ASA monitoring applied to patient. O2 given via nasal cannula. 2 mg Versed and 100 mcg fentanyl given for procedural sedation. Skin site was prepped with chlorhexidine and allowed to fully dry. Sterile gloves, mask, hat and probe cover were used to maintain sterility. 2% lidocaine and 30ga needle was used to make a small skin wheal at needle insertion site. Under ultrasound guidance, a 21ga 50mm Pajunk needle was directed into the interscalene groove (middle/anterior scalenes) near the brachial plexus. Patient reported no parasthesias. After negative aspiration, 15 mL 0.5% ropivicaine and 7.5mg dexamethasone were injected around brachial plexus. Patient tolerated procedure well.
[2020-12-09] MEDS: SODIUM CHLORIDE IRRIG SOLUTION 3,000 ML, EPINEPHrine 1 MG IRR (11:38)
[2020-12-09] MEDS: BENZOCAINE/MENTHOL 1 LOZ PKT 1 EACH PO (11:46)
--- NOTE | 2020-12-09 12:00 | P.OP_ITS ---
Operative Date/Time/Diagnoses Date of procedure: 12/09/20 Time of procedure: 12:00 Pre-op diagnosis: Left shoulder acromioclavicular strain Post-op diagnosis: same Procedure & Clinicians Procedure: Left shoulder arthroscopic distal clavicle excision Same procedure as scheduled: Yes Indications: The patient is a 35-year-old woman who injured her shoulder at work. She has failed to improve with non operative measures. MRI shows increased edema at the acromioclavicular joint on the left. After discussion the risks benefits and alternative she has agreed to arthroscopic debridement with distal clavicle excision. Risks discussed included but were not limited to: Failure to improve, stiffness, infection, nerve damage, deep venous thro mbosis, pulmonary embolism, stroke, myocardial infarction, permanent paralysis, aspiration pneumonia and . Surgeon: Michael Angeles Click Yes if Unassisted: Yes Anesthesia Type: General and Peripheral nerve block Operative Notes Findings: 1. Normal glenohumeral cartilage 2. Intact labrum 3. Intact glenohumeral ligaments 4. Normal subscapularis 5. Normal biceps tendon 6. Normal supraspinatus tendon 7. Normal infraspinatus tendon 8. Normal axillary pouch 9. Normal rotator cuff from the bursal surface 10. Type 2 acromion with no evidence for impingement. 11. Arthritis evident in the acromioclavicular joint with inferior bone spurs and cartilage damage. 12. Exam under anesthesia showed full range of motion and no evidence for pathologic laxity. Closure Type: primary Specimen(s): none sent Prosthetic devices, grafts, tissues, transplants, or devices: None Estimated Blood Loss (mL): 10 Blood products transfused: none Procedure in detail: The patient was seen in the preoperative area where she identified her left shoulder as the operative site and this was marked with my initials. She received preoperative antibiotics and underwent induction of an interscalene block. She was taken to the operating room and placed on the operating room table in the supine position where she underwent the in abduction of a general anesthetic. She was then repositioned in the right lateral decubitus position with an axillary roll and padding for all pressure points. She was stabilized in this position using the chi bag. The left arm was prepared from the fingertips to the base neck with ChloraPrep in the usual fashion draped through sterile drapes. I should note that a multimedia instructional designer-out was performed prior to draping. The subcutaneous landmarks were outlined on the skin with a marking pen after suspending the arm in 10 lb of balanced skin suspension. A posterior portal was created in the arthroscope inserted in glenohumeral joint. Diagnostic arthroscopy ensued with result given above. The arthroscope was then removed and placed in the subacromial bursa through the posterior portal. A lateral portal was created for instrumentation. A bursectomy was performed for visualization. There was no impingement lesion so an acromioplasty was not performed. The distal 8-10 mm of clavicle was removed due to the patient's preoperative symptoms there. There were inferior osteophytes on this joint as well as articular cartilage damage in the joint. Following the removal of the end of the collarbone, all arthroscopic equipment was removed. The wounds were closed with 4-0 Monocryl and Steri-Strips. Dressings of sterile 4x4s, an ABD and Medipore tape were applied in the patient's arm was placed in a sling. She was transported to the recovery room in good condition having tolerated the procedure well after extubation in the op erating room. Complications: none Post-operative Condition: stable Disposition: PACU Plan for aftercare: The patient will be maintained on a standard subacromial decompression protocol with range of motion as tolerated. She will be discharged today.
== END 2020-12-09 12:11 | disposition home or self-care (01) ==
PROVIDERS: PCP Student in an Organized Health Care Education/Training Program; Referring Provider Orthopaedic Surgery; Visit Provider Orthopaedic Surgery
PROC: (CPT 29805; principal; 2020-12-09 10:45)
DX: M19.012 Primary osteoarthritis, left shoulder (principal); S43.52XA Sprain of left acromioclavicular joint, initial encounter; M77.8 Other enthesopathies, not elsewhere classified; M25.712 Osteophyte, left shoulder; F17.210 Nicotine dependence, cigarettes, uncomplicated; F41.9 Anxiety disorder, unspecified
CPT/HCPCS: 29824; 64450; J0171; J0690; J1100; J1885; J2250; J2405; J2704; J3010

== ENCOUNTER 2021-01-30 15:50 | Emergency (ER) | payer OTHER, MEDICAID, SELFPAY ==
[2021-01-30 16:03] VITALS: BP 129/74; PULSE 80; RESP 16; TEMP 36.5; O2SAT 99; BMI 31.7
[2021-01-30] MEDS: LIDOCAINE 1% (PF) 6 ML (19:02)
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
--- NOTE | 2021-01-30 19:38 | DI.RAD.S_ITS ---
PROCEDURE: XR FINGER RT MIN 2V INDICATIONS: laceration TECHNIQUE: AP hand, 2 views of the right finger(s) acquired. COMPARISON: None. FINDINGS: Bones: No acute fracture seen. Scattered degenerative subchondral sclerosis and spurring. Soft tissues: No radiopaque foreign bodies identified. There is middle finger soft tissue swelling. IMPRESSION: No fracture. No radiopaque foreign body. Dictated by: Antonio Arriaza M.D. on 01/30/2021 at 20:32 Approved by: Antonio Arriaza M.D. on 01/30/2021 at 20:34
[2021-01-30] MEDS: IBUPROFEN 400 MG TABLET 800 MG PO (19:45)
[2021-01-30 20:20] VITALS: BP 115/82; PULSE 73; O2SAT 98
== END 2021-01-30 20:21 | disposition home or self-care (01) ==
PROVIDERS: Emergency Provider Emergency Medicine; PCP Student in an Organized Health Care Education/Training Program
DX: S61.212A Laceration without foreign body of right middle finger without damage to nail, initial encounter (principal); W26.9XXA Contact with unspecified sharp object(s), initial encounter
CPT/HCPCS: 12002; 64450; 73140; 99283

== ENCOUNTER 2021-02-28 20:29 | Emergency (ER) | payer OTHER, MEDICAID, SELFPAY ==
[2021-02-28 20:39] VITALS: BP 106/67; PULSE 84; RESP 14; TEMP 36.1; O2SAT 97
[2021-02-28 21:43] LABS: COVID19 -Nasal RAPID Negative (Negative)
[2021-03-01 00:15] LABS: Adenovirus Not Detected (Not Detect); B. parapertussis Not Detected (Not Detecte); Bordetella pertussis Not Detected (Not Detecte); Chlamydophila pneumoniae Not Detected (Not Detect); Coronavirus 229E Not Detected (Not Detect); Coronavirus HKU1 Not Detected (Not Detect); Coronavirus NL 63 Not Detected (Not Detect); Coronavirus OC43 Not Detected (Not Detect); Human Metapneumovirus Not Detected (Not Detect); Human Rhinovirus/Enterovirus Detected (Not Detect); Influenza A Not Detected (Not Detect); Influenza B Not Detected (Not Detect); Mycoplasma pneumoniae Not Detected (Not Detect); Parainfluenza Virus 1 Not Detected (Not Detect); Parainfluenza Virus 2 Not Detected (Not Detect); Parainfluenza Virus 3 Detected (Not Detect); Parainfluenza Virus 4 Not Detected (Not Detect); Respiratory Syncytial Virus Not Detected (Not Detect); SARS- CoV-2 Not Detected (Not Detecte)
[2021-03-01] MEDS: BENZONATATE 100 MG CAPSULE PO (00:44)
[2021-03-01 00:57] VITALS: PULSE 85; RESP 22; O2SAT 99
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
== END 2021-03-01 01:04 | disposition home or self-care (01) ==
PROVIDERS: Emergency Provider Emergency Medicine; PCP Student in an Organized Health Care Education/Training Program
DX: J06.9 Acute upper respiratory infection, unspecified (principal); B34.8 Other viral infections of unspecified site; Z20.822 Contact with and (suspected) exposure to COVID-19
CPT/HCPCS: 87633; 87635; 99283; C9803

== ENCOUNTER 2021-03-13 08:36 | Emergency (ER) | payer OTHER, MEDICAID, SELFPAY ==
[2021-03-13 08:43] VITALS: BP 108/63; PULSE 77; RESP 15; TEMP 36.2; O2SAT 97; BMI 303.6
== END 2021-03-13 10:17 | disposition left against medical advice (07) ==
PROVIDERS: Emergency Provider Emergency Medicine; PCP Student in an Organized Health Care Education/Training Program
CPT/HCPCS: 99281

== ENCOUNTER 2021-03-16 20:26 | Emergency (ER) | payer OTHER, MEDICAID, SELFPAY ==
[2021-03-16 20:45] VITALS: BP 117/73; PULSE 73; RESP 14; TEMP 36.7; O2SAT 95; BMI 31.9
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
[2021-03-16] MEDS: KETOROLAC 30 MG/ML VIAL IM (23:33)
[2021-03-17 00:08] VITALS: BP 131/92; PULSE 81; RESP 12; O2SAT 97
== END 2021-03-17 00:10 | disposition home or self-care (01) ==
PROVIDERS: Emergency Provider Emergency Medicine; PCP Student in an Organized Health Care Education/Training Program
DX: G43.909 Migraine, unspecified, not intractable, without status migrainosus (principal)
CPT/HCPCS: 96372; 99283; J1885

== ENCOUNTER 2021-05-07 18:25 | Emergency (ER) | payer OTHER, MEDICAID, SELFPAY ==
[2021-05-07 18:39] VITALS: BP 134/77; PULSE 98; RESP 16; TEMP 36; O2SAT 96
[2021-05-07 19:49] LABS: COVID19 -Nasal RAPID Negative (Negative)
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
== END 2021-05-07 21:03 | disposition home or self-care (01) ==
PROVIDERS: Emergency Provider Emergency Medicine; PCP Student in an Organized Health Care Education/Training Program
DX: Z20.822 Contact with and (suspected) exposure to COVID-19 (principal)
CPT/HCPCS: 87635; 99281; C9803

== ENCOUNTER → 2021-06-16 14:30 | Outpatient (CLI) | payer OTHER, MEDICAID, SELFPAY ==
--- NOTE | 2021-06-16 14:31 | DI.RAD.S_ITS ---
PROCEDURE: XR LUMBAR SPINE 2-3V INDICATIONS: Midback and possibly related abdominal pain TECHNIQUE: 3 views of the lumbar spine were acquired. COMPARISON: None. FINDINGS: Bones: 4 [id number] vertebrae are present. There is normal bony alignment. No vertebral body compression fractures. No suspicious bony lesions. Soft tissues: Overlying bowel gas pattern is normal. No suspicious soft tissue calcifications. IMPRESSION: No acute osseous abnormality. Dictated by: Radhames Espinoza M.D. on 06/16/2021 at 15:43 Approved by: Radhames Espinoza M.D. on 06/16/2021 at 15:47
--- NOTE | 2021-06-16 14:31 | DI.RAD.S_ITS ---
PROCEDURE: XR THORACIC SPINE 2V INDICATIONS: Midback and possibly related abdominal pain TECHNIQUE: 2 views of the thoracic spine were acquired. COMPARISON: None. FINDINGS: Bones: No acute fracture. Multilevel degenerative endplate sclerosis and spurring. Diffuse facet arthropathy. Disc spaces grossly preserved. Soft tissues: No paravertebral stripe thickening. IMPRESSION: Mild discogenic changes as above. If the patient's pain or other symptoms persist, consider further evaluation with MRI Dictated by: Antonio Arriaza M.D. on 06/16/2021 at 16:12 Approved by: Antonio Arriaza M.D. on 06/16/2021 at 16:13
== END ==
PROVIDERS: PCP Student in an Organized Health Care Education/Training Program; Referring Provider Student in an Organized Health Care Education/Training Program; Visit Provider Student in an Organized Health Care Education/Training Program
DX: R10.9 Unspecified abdominal pain; M54.50 Low back pain, unspecified
CPT/HCPCS: 72070; 72100

== ENCOUNTER → 2021-06-25 16:04 | Outpatient (CLI) | payer OTHER, MEDICAID, SELFPAY ==
[2021-06-26 20:19] LABS: HIV 1 & 2 Ab/Ag 4th Gen Combo NEGATIVE (NEGATIVE); Hep C Virus Ab w/Reflex Quant NEGATIVE s/c (NEGATIVE); Hepatitis B Surface Antigen NEGATIVE s/c (NEGATIVE)
[2021-06-28 09:48] LABS: Chlamydia trachomatis Negative (Negative); Mycoplasma genitalium Negative (Negative); Neisseria gonorrhoeae Negative (Negative)
== END ==
PROVIDERS: PCP Student in an Organized Health Care Education/Training Program; Referring Provider Specialist; Visit Provider Specialist
DX: Z11.3 Encounter for screening for infections with a predominantly sexual mode of transmission (principal); Z76.89 Persons encountering health services in other specified circumstances
CPT/HCPCS: 36415; 86803; 87210; 87340; 87389; 87491; 87563; 87591

== ENCOUNTER 2021-07-11 21:25 | Emergency (ER) | payer OTHER, MEDICAID, SELFPAY ==
[2021-07-11 21:40] VITALS: BP 113/68; PULSE 98; RESP 18; TEMP 38.2; O2SAT 96; BMI 35.6
[2021-07-11 21:58] LABS: COVID19 -Nasal RAPID POSITIVE (Negative)
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
--- NOTE | 2021-07-11 23:09 | PC.NURSE ---
Pt asking for pain med for back pain. Taking Tylenol at home. Dr Quiñonez notified.
[2021-07-11 23:17] LABS: Ictotest Urine Negative (Negative)
[2021-07-11 23:18] LABS: RBC Urine 30-100/HPF (0-5/HPF)
[2021-07-11 23:19] LABS: Bacteria Urine Many (>30); Mucus Urine 1+ (Negative); Squamous Epithelial Cell Urine 1-5 /HPF (0-5/HPF); WBC Urine 30-100/HPF (0-5/HPF)
[2021-07-11] MEDS: cephALEXin 250 MG PREPACK 1 BOTTLE MISC (23:45)
[2021-07-11] MEDS: CYCLOBENZAPRINE 10 MG PREPACK 1 BOTTLE MISC (23:45)
== END 2021-07-11 23:55 | disposition home or self-care (01) ==
PROVIDERS: Emergency Provider Emergency Medicine; PCP Student in an Organized Health Care Education/Training Program
DX: U07.1 COVID-19 (principal); N39.0 Urinary tract infection, site not specified
CPT/HCPCS: 81003; 81015; 87077; 87086; 87186; 87635; 99282; C9803

== ENCOUNTER → 2021-09-02 14:42 | Outpatient (CLI) | payer OTHER, MEDICAID, SELFPAY ==
[2021-09-02 15:13] LABS: COVID19 -Nasal RAPID Negative (Negative)
== END ==
PROVIDERS: PCP Student in an Organized Health Care Education/Training Program; Referring Provider Physician Assistant; Visit Provider Physician Assistant
DX: Z20.822 Contact with and (suspected) exposure to COVID-19 (principal)
CPT/HCPCS: 87635

== ENCOUNTER → 2022-01-01 09:11 | Outpatient (CLI) | payer OTHER, MEDICAID, SELFPAY ==
[2022-01-01 10:03] LABS: COVID19 -Nasal RAPID Negative (Negative)
== END ==
PROVIDERS: PCP Student in an Organized Health Care Education/Training Program; Visit Provider Nurse Practitioner Family
DX: Z20.822 Contact with and (suspected) exposure to COVID-19 (principal)
CPT/HCPCS: 87635

== ENCOUNTER → 2022-02-17 10:24 | Outpatient (CLI) | payer OTHER, MEDICAID, SELFPAY ==
--- NOTE | 2022-02-17 10:25 | DI.RAD.S_ITS ---
PROCEDURE: XR SHOULDER RT MIN 2V INDICATIONS: Right shoulder pain TECHNIQUE: 3 views of the shoulder were acquired. COMPARISON: None. FINDINGS: Bones: No fractures or dislocations. No suspicious bony lesions. Visualized ribs appear intact. Soft tissues: No suspicious soft tissue calcifications. IMPRESSION: No fracture. No osseous lesion. If symptoms and/or clinical suspicion for pathology persists, further assessment with repeat radiographs (7-10 days) or advanced imaging (e.g. CT, MRI or bone scan) should be considered. Dictated by: Leticia Loja MD, PhD on 02/17/2022 at 14:42 Approved by: Leticia Loja MD, PhD on 02/17/2022 at 14:43
== END ==
PROVIDERS: PCP Student in an Organized Health Care Education/Training Program; Referring Provider Student in an Organized Health Care Education/Training Program; Visit Provider Student in an Organized Health Care Education/Training Program
DX: M25.511 Pain in right shoulder (principal)
CPT/HCPCS: 73030

== ENCOUNTER 2022-05-26 17:18 | Emergency (ER) | payer OTHER, SELFPAY ==
[2022-05-26 17:43] VITALS: BP 123/76; PULSE 95; RESP 18; O2SAT 98
--- NOTE | 2022-05-26 17:45 | DI.RAD.S_ITS ---
PROCEDURE: XR KNEE LT 3V INDICATIONS: pain, hyperextension yesterday TECHNIQUE: 3 views of the knee were acquired. COMPARISON: None. FINDINGS: Bones: No fractures or dislocations. No suspicious bony lesions. Soft tissues: No joint effusion. No suspicious soft tissue calcifications. IMPRESSION: Left knee without acute fracture or dislocation. If there are persistent symptoms or clinical suspicion for pathology, then repeat radiographs or advanced imaging (CT or MRI) may be considered for further evaluation. Dictated by: Joshua Caruso M.D. on 05/26/2022 at 18:23 Approved by: Joshua Caruso M.D. on 05/26/2022 at 18:26
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
== END 2022-05-27 01:17 | disposition home or self-care (01) ==
PROVIDERS: Emergency Provider Emergency Medicine; PCP Student in an Organized Health Care Education/Training Program
DX: S83.92XA Sprain of unspecified site of left knee, initial encounter (principal); X50.1XXA Overexertion from prolonged static or awkward postures, initial encounter; Y99.0 Civilian activity done for income or pay
CPT/HCPCS: 73562; 99282; 99283

== ENCOUNTER → 2022-06-10 18:26 | Outpatient (CLI) | payer OTHER, MEDICAID, SELFPAY | PROVIDERS: PCP Student in an Organized Health Care Education/Training Program; Visit Provider Nurse Practitioner Family | DX: R30.0 Dysuria (principal) | CPT/HCPCS: 81002; 87086; 87210 ==

== ENCOUNTER → 2022-06-25 10:29 | Outpatient (CLI) | payer OTHER, MEDICAID, SELFPAY ==
[2022-06-27 20:56] LABS: Chlamydia trachomatis Negative (Negative); Mycoplasma genitalium Negative (Negative); Neisseria gonorrhoeae Negative (Negative)
== END ==
PROVIDERS: PCP Student in an Organized Health Care Education/Training Program; Visit Provider Obstetrics & Gynecology
DX: R32 Unspecified urinary incontinence (principal); N89.8 Other specified noninflammatory disorders of vagina
CPT/HCPCS: 87086; 87491; 87563; 87591

== ENCOUNTER → 2022-06-25 11:03 | Outpatient (CLI) | payer OTHER, MEDICAID, SELFPAY ==
[2022-06-25 17:28] LABS: Hepatitis B Surface Antigen NEGATIVE s/c (NEGATIVE)
[2022-06-25 17:56] LABS: HIV 1 & 2 Ab/Ag 4th Gen Combo NEGATIVE (NEGATIVE); Hep C Virus Ab w/Reflex Quant NEGATIVE s/c (NEGATIVE)
[2022-06-26 10:32] LABS: RPR Screen Non Reactive (Non Reactive)
== END ==
PROVIDERS: PCP Student in an Organized Health Care Education/Training Program; Referring Provider Obstetrics & Gynecology; Visit Provider Obstetrics & Gynecology
DX: Z11.3 Encounter for screening for infections with a predominantly sexual mode of transmission (principal); R32 Unspecified urinary incontinence; N89.8 Other specified noninflammatory disorders of vagina
CPT/HCPCS: 36415; 86592; 86803; 87077; 87086; 87186; 87340; 87389; 87491; 87563; 87591

== ENCOUNTER → 2022-07-08 11:59 | Outpatient (CLI) | payer OTHER, MEDICAID, SELFPAY ==
[2022-07-08 12:25] LABS: Appearance Urine UA SL CLOUDY; Bilirubin Urine UA NEGATIVE (NEGATIVE); Color Urine UA YELLOW; Glucose Urine UA NEGATIVE (Negative); Ketones Urine UA NEGATIVE (NEGATIVE); Leukocyte Esterase Urine UA 1+ (NEGATIVE); Nitrite Urine UA NEGATIVE (Negative); Occult Blood Urine UA TRACE-INTACT (Negative); Protein Urine UA NEGATIVE (Negative); Urobilinogen Urine UA 0.2 E.U./dL (0.2)
[2022-07-08 14:07] LABS: Bacteria Urine Occasional (0-1); Culture Indicated Urine Specimen Cultured; RBC Urine 0-1/HPF (0-5/HPF); Squamous Epithelial Cell Urine 0-1 /HPF (0-5/HPF); WBC Urine 5-10/HPF (0-5/HPF)
== END ==
PROVIDERS: PCP Student in an Organized Health Care Education/Training Program; Referring Provider Obstetrics & Gynecology; Visit Provider Obstetrics & Gynecology
DX: N39.0 Urinary tract infection, site not specified (principal)
CPT/HCPCS: 81001; 87077; 87086; 87147; 87186